=== PATIENT | male | born 1980 | race Caucasian/White ===

== ENCOUNTER → 2020-06-02 | Outpatient (REF) | payer MEDICARE | LOC: M SFHCADAM 12:23 | PROVIDERS: ATTEND Physician Assistant | DX: J02.9 Acute pharyngitis, unspecified (principal); Z20.822 Contact with and (suspected) exposure to COVID-19 | CPT/HCPCS: G0463; U0003 ==

== ENCOUNTER → 2020-06-20 | Outpatient (CLI) | payer MEDICARE ==
--- NOTE | 2020-06-20 11:28 | REP ---
INDICATION: COUGH COMPARISON: None. TECHNIQUE: PA and lateral. FINDINGS: The mediastinum and cardiac silhouette are normal. The lung metzger demonstrate chronic appearing changes without discrete focal consolidation, effusion, or pneumothorax. Skeletal structures demonstrate age-related changes. IMPRESSION: No obvious focal consolidation or effusion. <Electronically signed by Sascha Cisneros > 06/20/20 1121
== END ==
LOC: M ADAMS 11:02
PROVIDERS: ATTEND Physician Assistant
DX: R05 Cough (principal)
CPT/HCPCS: 71046; G0463

== ENCOUNTER → 2020-09-09 | Outpatient (CLI) | payer MEDICARE ==
[~2020-09-09] MED LIST: ATOR1TAB21 PO; FLUTISP NARES; METF10004 PO; OMEP-218 PO
== END ==
LOC: M LABSMTC 11:17
PROVIDERS: ATTEND Anesthesiology
DX: Z01.818 Encounter for other preprocedural examination (principal); Z11.52 Encounter for screening for COVID-19

== ENCOUNTER 2020-09-14 07:38 | Day surgery (SDC) | payer MEDICARE ==
[~2020-09-14] VITALS: Ht 175.3 cm; Wt 99.8 kg
[~2020-09-14 07:38] MED LIST changes: +LR 1,000 ML IV ONE; +dexameTHASONE 4 MG/ML 1ML VIAL (J1100 PER 1MG) IV ONE
[2020-09-14] MEDS ORDERED: fentaNYL 250 MCG/5 ML INJECTION (J3010) As Ordered ONE (08:01)
[2020-09-14] MEDS ORDERED: ONDANSETRON 4MG/2ML VIAL As Ordered ONE (08:02)
[2020-09-14] MEDS ORDERED: ROCURONIUM BROMIDE 50 MG/5 ML VIAL As Ordered ONE (08:02)
[2020-09-14] MEDS ORDERED: MIDAZOLAM INJ 2MG/2ML VIAL (J2250 PER 1MG) As Ordered ONE (08:02)
[2020-09-14] MEDS ORDERED: LIDOCAINE 2% 100MG/5ML SDV (FOR ANES.) As Ordered ONE (08:02)
[2020-09-14] MEDS ORDERED: propofoL 200 MG/20 ML VIAL As Ordered ONE (08:02)
[2020-09-14] MEDS ORDERED: dexameTHASONE 4 MG/ML 1ML VIAL (J1100 PER 1MG) As Ordered ONE (08:02)
[2020-09-14] MEDS ORDERED: SILVER NITRATE APPLICATOR As Ordered ONE (08:12)
[2020-09-14] MEDS ORDERED: THROMBIN SOLN 5,000 UNITS VIAL As Ordered ONE (08:12)
[2020-09-14] MEDS ORDERED: OXYMETAZOLINE 0.05% NASAL SPRAY (AFRIN) As Ordered ONE (08:13)
[2020-09-14] MEDS ORDERED: METHYLENE BLUE 0.5% (5MG/ML) 10 ML AMP (PROVAYBLUE) As Ordered ONE (08:13)
[2020-09-14] MEDS ORDERED: EPINEPHrine 1MG/ML INJ 30ML MD-VIAL As Ordered ONE (08:13)
[2020-09-14] MEDS ORDERED: LIDOCAINE W/EPINEPHRINE 1% 20ML VIAL As Ordered ONE (08:13)
[2020-09-14] MEDS ORDERED: SEVOFLURANE INHAL SOLN 250 ML BTL As Ordered ONE (08:14)
[2020-09-14] MEDS ORDERED: ACETAMINOPHEN 1000MG 100ML IV BTL (OFIRMEV) (J0131 PER 10MG) As Ordered ONE (09:34)
[2020-09-14] MEDS ORDERED: SUGAMMADEX SODIUM 500 MG/5 ML VIAL (BRIDION) As Ordered ONE (09:40)
[2020-09-14] MEDS ORDERED: ESMOLOL INJ 100MG/10ML VIAL As Ordered ONE (09:54)
[2020-09-14] MEDS ORDERED: ONDANSETRON 4MG/2ML VIAL IV PRN (10:40)
[2020-09-14] MEDS ORDERED: LR 1,000 ML IV SCH ×2 (10:40→11:00)
[2020-09-14] MEDS ORDERED: fentaNYL 100 MCG/2 ML INJECTION (J3010) IV PRN (10:40)
[2020-09-14] MEDS ORDERED: METOCLOPRAMIDE INJ 10MG/2ML VIAL (J2765 PER 1) IV PRN (10:40)
[2020-09-14] MEDS: PERCOCET 5MG/325MG TAB PO PRN ×2 (10:51→11:23)
[2020-09-14 12:20] VITALS: BP 149/83
== END 2020-09-14 12:35 | disposition home or self-care (01) ==
LOC: M SDC 07:38
PROVIDERS: ATTEND Otolaryngology
DX: J34.9 Unspecified disorder of nose and nasal sinuses (principal); J38.3 Other diseases of vocal cords; E78.5 Hyperlipidemia, unspecified; E11.9 Type 2 diabetes mellitus without complications; F17.218 Nicotine dependence, cigarettes, with other nicotine-induced disorders; Z79.84 Long term (current) use of oral hypoglycemic drugs; Z79.899 Other long term (current) drug therapy; F32.9 Major depressive disorder, single episode, unspecified; G43.909 Migraine, unspecified, not intractable, without status migrainosus; K21.9 Gastro-esophageal reflux disease without esophagitis
CPT/HCPCS: 31237; 31536; 88305; J0131; J1100; J2250; J2405; J3010; Q9968

== ENCOUNTER → 2020-09-24 | Outpatient (CLI) | payer MEDICARE ==
[~2020-09-24] MED LIST changes: -LR 1,000 ML IV ONE; -dexameTHASONE 4 MG/ML 1ML VIAL (J1100 PER 1MG) IV ONE
== END ==
LOC: M LABSMTC 09:15
PROVIDERS: ATTEND Anesthesiology
DX: Z01.818 Encounter for other preprocedural examination (principal); Z11.52 Encounter for screening for COVID-19

== ENCOUNTER → 2020-09-29 | Day surgery (SDC) | payer MEDICARE ==
[~2020-09-29] VITALS: Ht 175.3 cm; Wt 99.8 kg
[~2020-09-29] MED LIST changes: +LIDOCAINE 2% 100MG/5ML SDV (FOR ANES.) As Ordered ONE; +NS 1,000 ML IV ONE; +fentaNYL 100 MCG/2 ML INJECTION (J3010) As Ordered ONE; +propofoL 500 MG/50 ML VIAL As Ordered ONE
--- NOTE | 2020-09-29 11:12 | ROOR ---
Patient Name: Carlos Manuel Reddy Procedure Date: 09/29/2020 10:42 AM Date of : 1980 Age: 40 Room: [facility] Gender: Male Note Status: Finalized Procedure: Upper GI endoscopy Indications: Heartburn, Regurgitation Providers: Raj Bianchi MD Referring MD: BRAYDEN Gilbert Requesting Provider: Medicines: Monitored Anesthesia Care Complications: No immediate complications. Procedure: Pre-Anesthesia Assessment: - The heart rate, respiratory rate, oxygen saturations, blood pressure, adequacy of pulmonary ventilation, and response to care were monitored throughout the procedure. The Endoscope was introduced through the mouth, and advanced to the second part of duodenum. The upper GI endoscopy was accomplished without difficulty. The patient tolerated the procedure well. Findings: There were esophageal mucosal changes suspicious for short-segment Roman's esophagus present in the lower third of the esophagus. The maximum longitudinal extent of these mucosal changes was 1 cm in length. Mucosa was biopsied with a cold forceps for histology from 39 to 40 cm from the incisors. One specimen bottle was sent to pathology. The exam of the esophagus was otherwise normal. The entire examined stomach was normal. (compliant/large volume) The examined duodenum was normal. Impression: - Esophageal mucosal changes suspicious for short-segment (1 cm, no nodularity) Roman's esophagus. Biopsied. - Esphagus is otherwise normal. - Normal stomach. - Normal examined duodenum. Recommendation: - Use Prilosec (omeprazole) 40 mg PO BID indefinitely. - You may use Gaviscon as needed for breakthrough symptoms. (script sent) - Eat smaller, more frequent meals throughout the day. - Low fat diet. - Liquid/soft foods are tolerated better than solid foods. - Low fiber/well cooked vegetables are tolerated better than high fiber/fibrous foods/raw vegetables. - Avoid medications that inhibit gastric/intestinal motility such as narcotic medications. - Repeat upper endoscopy in 3 years for surveillance. Procedure Code(s): --- Professional --- 58278, Esophagogastroduodenoscopy, flexible, transoral; with biopsy, single or multiple Diagnosis Code(s): --- Professional --- R11.10, Vomiting, unspecified R12, Heartburn K22.8, Other specified diseases of esophagus CPT copyright 2019 [employer]. All rights reserved. The codes documented in this report are preliminary and upon promotional marketing agent review may be revised to meet current compliance requirements. Raj Bianchi MD Raj Bianchi MD 09/29/2020 11:12:11 AM Electronically signed by Raj Bianchi MD Number of Addenda: 0 Note Initiated On: 09/29/2020 10:42 AM Estimated Blood Loss: Estimated blood loss: none.
[2020-09-29 11:25] VITALS: BP 142/88
== END | disposition home or self-care (01) ==
LOC: M OPP 08:51
PROVIDERS: ATTEND Internal Medicine Gastroenterology
DX: R12 Heartburn (principal); R11.10 Vomiting, unspecified; K22.70 Barrett's esophagus without dysplasia; K22.8 Other specified diseases of esophagus; E78.5 Hyperlipidemia, unspecified; E11.9 Type 2 diabetes mellitus without complications; M19.90 Unspecified osteoarthritis, unspecified site; F32.9 Major depressive disorder, single episode, unspecified; G43.909 Migraine, unspecified, not intractable, without status migrainosus; F17.210 Nicotine dependence, cigarettes, uncomplicated; Z79.84 Long term (current) use of oral hypoglycemic drugs; Z79.899 Other long term (current) drug therapy; Z83.3 Family history of diabetes mellitus; Z82.49 Family history of ischemic heart disease and other diseases of the circulatory system
CPT/HCPCS: 43239; 88305; J3010

== ENCOUNTER → 2020-11-09 | Outpatient (CLI) | payer MEDICARE ==
[~2020-11-09] MED LIST changes: -LIDOCAINE 2% 100MG/5ML SDV (FOR ANES.) As Ordered ONE; -NS 1,000 ML IV ONE; -fentaNYL 100 MCG/2 ML INJECTION (J3010) As Ordered ONE; -propofoL 500 MG/50 ML VIAL As Ordered ONE
[2020-11-09 11:03] LABS: ALBUMIN 3.7 GM/DL (3.2-5.2); ALT/SGPT 21 U/L (12-78); BILIRUBIN,TOTAL 0.4 MG/DL (0.2-1.0); BLOOD UREA NITROGEN 15 MG/DL (7-18); CARBON DIOXIDE LEVEL 27 MEQ/L (21-32); CHLORIDE LEVEL 106 MEQ/L (98-107); CHOLESTEROL LEVEL 229 MG/DL (<200); CHOLESTEROL RISK RATIO 8.807 (<5); CREATININE FOR GFR 0.73 MG/DL (0.70-1.30); GLOMERULAR FILTRATION RATE > 60.0 (>60); GLUCOSE, FASTING 189 MG/DL (70-100); HDL CHOLESTEROL 26 MG/DL (>40); NON-HDL-C 203 MG/DL; POTASSIUM SERUM 4.7 MEQ/L (3.5-5.1); SODIUM LEVEL 140 MEQ/L (136-145); TOTAL PROTEIN 6.8 GM/DL (6.4-8.2); TRIGLYCERIDES LEVEL 747 MG/DL (<150)
[2020-11-09 12:02] LABS: HEMOGLOBIN A1c 7.3 %
== END ==
LOC: M PLALAB 07:56
PROVIDERS: ATTEND Physician Assistant
DX: E78.2 Mixed hyperlipidemia (principal)

== ENCOUNTER → 2020-11-13 | Outpatient (CLI) | payer MEDICARE ==
[~2020-11-13] MED LIST changes: +ISOVUE-370 76% 100ML VIAL As Ordered ONE
--- NOTE | 2020-11-13 10:26 | REPVR ---
PROCEDURE INFORMATION: Exam: CT Neck With Contrast Exam date and time: 11/13/2020 9:53 AM Age: 40 years old Clinical indication: Condition or disease; Other: Diseases of vocal cords; Prior surgery; Surgery date: 6+ months TECHNIQUE: Imaging protocol: Computed tomography images of the neck with contrast. Radiation optimization: All CT scans at this facility use at least one of these dose optimization techniques: automated exposure control; mA and/or kV adjustment per patient size (includes targeted exams where dose is matched to clinical indication); or iterative reconstruction. Contrast material: ISOVUE 370; Contrast volume: 75 ml; Contrast route: INTRAVENOUS (IV); COMPARISON: DX CHEST 2 VIEW 06/20/2020 10:49 AM FINDINGS: Brain: The visualized base of the brain is within normal limits for age. Paranasal sinuses: No air-fluid levels. Nasopharynx: Unremarkable. Oropharynx: Mildly asymmetric soft tissue thickening calcification at the parapharyngeal level on the left comparison to the right can be followed with direct visualization. Hypopharynx: Unremarkable. Larynx: Symmetric appearance to the vocal cords. Retropharyngeal space: Unremarkable. Submandibular/Parotid glands: Normal. Glands are normal in size. Thyroid: Normal. No enlarged or calcified nodules. Lymph nodes: No lymphadenopathy. Trachea: Visualized trachea is unremarkable. Lungs: The included lungs are clear. Bones/joints: Postoperative changes of anterior fusion at C6-C7 with an interbody spacer. The patient is edentulous with lucent lesions in both sides of the anterior maxilla possibly dental in origin but I have no priors. Vasculature: No venous thrombus. No significant atherosclerotic disease of the carotids. Soft tissues: No prevertebral soft tissue swelling. No dominant neck mass. IMPRESSION: 1. No dominant mass or confluent lymphadenopathy. 2. Mildly asymmetric soft tissue at the parapharyngeal level on the left as above. 3. Symmetric appearance to the vocal cords. 4. Lucent lesions along both sides of the anterior maxilla for which appropriate follow-up is recommended. Electronically signed by: Javi Radford On 11/13/2020 10:26:33 AM
== END ==
LOC: M RAD 09:16
PROVIDERS: ATTEND Otolaryngology
DX: J38.3 Other diseases of vocal cords (principal)
CPT/HCPCS: 70491; Q9967

== ENCOUNTER → 2020-12-08 | Outpatient (REF) | payer MEDICARE ==
[~2020-12-08] MED LIST changes: +ATOR40TA75 PO; +ICOS1CAP PO; -ISOVUE-370 76% 100ML VIAL As Ordered ONE; +JARD1TAB3 PO; +OMEP-221 PO
[2020-12-08 14:45] LABS: C REACTIVE PROTEIN QUANTITATIV 0.69 MG/DL (0.00-0.30); FREE T4 1.09 NG/DL (0.76-1.46); RHEUMATOID FACTOR QUANT < 10.0 IU/ML (<15.0); THYROID STIMULATING HORMONE 0.919 uIU/ML (0.358-3.740)
[2020-12-12 23:07] LABS: ANA (HEP2) Negative (.); HLA-B27 Negative (.)
== END ==
LOC: M SFHCADAM 08:46
PROVIDERS: ATTEND Physician Assistant
DX: E78.1 Pure hyperglyceridemia (principal); M19.90 Unspecified osteoarthritis, unspecified site; M54.5 Low back pain

== ENCOUNTER → 2020-12-08 | Outpatient (CLI) | payer MEDICARE | LOC: M ADAMS 08:50 | PROVIDERS: ATTEND Physician Assistant | DX: M54.5 Low back pain (principal); E78.1 Pure hyperglyceridemia; M19.90 Unspecified osteoarthritis, unspecified site | CPT/HCPCS: 72110; 81374; 84439; 84443; 86038; 86140; 86431; G0463 ==

== ENCOUNTER → 2021-02-05 | Outpatient (CLI) | payer MEDICARE ==
--- NOTE | 2021-02-05 20:48 | ECGEPIP ---
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
== END ==
LOC: M EKG 10:25
PROVIDERS: ATTEND Otolaryngology
DX: Z01.818 Encounter for other preprocedural examination (principal); E11.59 Type 2 diabetes mellitus with other circulatory complications

== ENCOUNTER → 2021-02-10 | Outpatient (CLI) | payer MEDICARE | LOC: M LABSMTC 09:31 | PROVIDERS: ATTEND Anesthesiology | DX: Z01.818 Encounter for other preprocedural examination (principal); Z11.52 Encounter for screening for COVID-19 ==

== ENCOUNTER 2021-02-15 08:39 | Day surgery (SDC) | payer MEDICARE ==
[~2021-02-15] VITALS: Ht 175.3 cm; Wt 94.7 kg
[~2021-02-15 08:39] MED LIST changes: +LR 1,000 ML IV ONE
--- OUTSIDE RECORDS SUMMARY | 2021-02-15 08:45 | CCD | Continuity of Care Document ---
Author Author Carlos Manuel BULL MD Organization Unknown Address [address] [facility] [address] [place] [address] Phone [phone] Care Team Providers Care Superintendent Operations Division Name Role Phone Chloe Dunlap P.A.-C. AUTM [phone] Problems Description No Active Problems Social History Type Date Description Comments Sex Unknown Smokeless Tobacco Quit 2017 ETOH Use 2 A Day Tobacco Use Start: Unknown Smokes 1 Pack A Day Recreational Drug Use Denies Drug Use Tobacco Use Start: Unknown Report Cessation Counseling Was Provided Allergies, Adverse Reactions, Alerts Active Allergies Criticality Reaction | Severity Comments Date NKDA Unable to assess criticality 07/18/2020 Environmental Unable to assess criticality 07/18/2020 Seasonal Unable to assess criticality 07/18/2020 Medications Active Medications SIG Qnty Indications Ordering Provide r Date Mometasone Furoate 50mcg/Act Suspe nsion 2 sprays per nostril daily 51gm J31.0 Edgard Bull MD 021 Gaviscon 80-14.2mg Chewtabs chew and swallow 2 tablets by mouth 4 times per day after meals and at bedtime as needed for breakthrough acid indigestion 180units Raj Bianchi MD 09/29/[address] take 1 capsule by mouth twice daily. 60caps K21.9 Raj Bianchi MD Atorvastatin Calcium 20mg Tablets Take One Tablet By Mouth Every Day Unknown Metformin HCL 850mg Tablets Take One Tablet By Mouth Twice A Day Unknown Saline Nasal [place] 0.65% Solution 2 sprays to each nostril 2-3 times a day and as needed Un known Fish Oil 500mg Capsules 2 by mouth every day Unknown Januvia 25mg Tablets 1 by mouth every day Unknown Immunizations Description No Information Available Vital Signs Date Vital Result Comment 12/12/2020 8:54am Height 69 inches 5'9" Weight 212.00 lb BMI (Body Mass Index) 31.3 kg/m2 [place] Body Weight 160 lb Weight 96.163 kg BSA (Body Surface Area) 2.12 m2 11/29/2020 10:18am Height 69 inches 5'9" Weight 228.00 lb BMI (Body Mass Index) 33.7 kg/m2 [place] Body Weight 160 lb Weight 103.421 kg BSA (Body Surface Area) 2.18 m2 Results Test Acquired Date Facility Test Result H/L Range Note Laboratory test finding 09/29/2020 [facility] [address] [place] [address] [id number] [phone] Pathology Request For Service (SEE NOTE) 1 Laboratory test finding 09/14/2020 [facility] [address] [place], [place] [id number] [phone] Pathology Request For Service (SEE NOTE) 2 Laboratory test finding 09/14/2020 [facility] [address] [place], [place] [id number] [phone] Bedside Glucose 153 mg/dL High 70-105 1 FINAL DIAGNOSIS Esophagus, GE junction, biopsy: Roman's mucosa present. Mild chronic inflammation. No evidence of premalignant dysplasia. Squamous mucosa with reactive and reparative changes. 10/02/2020 - 1031 CLINICAL DIAGNOSIS Heartburn, epigastric pain 09/29/20201506 GROSS DIAGNOSIS Received in formalin labeled "biopsy GE junction R/O Roman's, variable Z line" and consists of fragments of tissue 0.3 x 0.2 x 0.1 cm. All in one. -OA 09/29/2020 - 1506 Signed SANFORD VICK MD 10/02/20201031 2 FINAL DIAGNOSIS A - Nasopharynx, left, biopsy: Polypoid fragment of ciliated respiratory/sinonasal mucosa with chronic inflammation and focal squamous metaplasia. No evidence for malignancy. B - Vocal cord, right, biopsy: Fragments of polypoid hyperkeratotic squamous mucosa. No evidence for malignancy. C - Vocal cord, left, biopsy: Fragments of hyperkeratotic squamous mucosa with mild focal atypia. No evidence for malignancy. 09/15/2020 - 1218 CLINICAL DIAGNOSIS Nasopharynx mass, bilateral vocal cord leukoplakia 09/14/2020 - 2 GROSS DIAGNOSIS A - Received in formalin labeled "left nasopharynx biopsy" and consists of multiple fragments of montgomery tissue measuring 0.7 x 0.5 x 0.2 cm. in aggregate. All in one. B - Received in formalin labeled "right vocal cord biopsy" and consists of two fragments of montgomery tissue 0.7 x 0.5 x 0.3 cm. in aggregate. All in one. C - Received in formalin labeled "left vocal cord biopsy" and consists of two fragments of montgomery-white tissue measuring 0.6 x 0.4 x 0.2 cm. in aggregate. All in one. -SVY 09/14/2020 - 1431 Signed ENEDELIA HENRY MD 09/15/2020 1326 Procedures Date Code Description Status 12/12/2020 43582 Office/Outpatient Established Mo d MDM 30-39 Min Completed 12/12/2020 96980 Laryngoscopy Flexible Fiberoptic Diagnostic Completed 10/04/2020 65878 Office/Outpatient Established Mo d MDM 30-39 Min Completed 10/04/2020 01393 Laryngoscopy Flexible Fiberoptic Diagnostic Completed 09/29/2020 60842 Endoscopy Upper GI Biopsy Comple mary lou 09/21/2020 64789 Office/Outpatient Established Lo w MDM 20-29 Min Completed 09/14/2020 09219 Laryngoscopy Direct Biopsy W/Ope rating Microscope Completed 09/14/2020 06865 Endoscopy Nasal/Sinus Surgical W /BX/Polypectomy/Debridement Completed 07/28/2020 67474 Office/Outpatient New Low MDM 30 -44 Minutes Completed 07/18/2020 96201 Office/Outpatient New Moderate M DM 45-59 Minutes Completed 07/18/2020 33607 Endoscopy Nasal Diagnostic Compl eted Medical Devices Description No Information Available Encounters Type Date Location Provider Dx Diagnosis Office Visit 12/12/2020 9:15a [facility] Edgard Bull MD J38.3 Other diseases of vocal cords J31.0 Chronic rhinitis R09.82 Postnasal drip J32.0 Chronic maxillary sinusitis F17.210 Nicotine dependence, cigaret adam, uncomplicated Office Visit 10/04/2020 1:00p [facility] Edgard Bull MD J38.3 Other diseases of vocal cords J31.0 Chronic rhinitis R09.82 Postnasal drip R49.0 Dysphonia Office Visit 09/21/2020 9:15a [facility] Ayan Mora II, PA-C J38.3 Other diseases of vocal cords J31.1 Chronic nasopharyngitis Office Visit 07/28/2020 1:00p [facility] ELISE Martinez K21.9 Gastro-esophageal reflux dis ease without esophagitis R10.13 Epigastric pain R19.8 Oth symptoms and signs invol ving the dgstv sys and abdomen Office Visit 07/18/2020 9:30a [facility] Edgrad Bull MD J31.0 Chronic rhinitis J34.3 Hypertrophy of nasal turbina adam J32.0 Chronic maxillary sinusitis J31.1 Chronic nasopharyngitis R49.0 Dysphonia J38.3 Other diseases of vocal cord s R09.82 Postnasal drip Assessments Date Code Description Provider 12/12/2020 J38.3 Other diseases of vocal cords To maranda Bull MD 12/12/2020 J31.0 Chronic rhinitis Edgard Bull MD 12/12/2020 R09.82 Postnasal drip Edgard Bull MD 12/12/2020 J32.0 Chronic maxillary sinusitis Edgard Bull MD 12/12/2020 F17.210 Nicotine dependence, cigarettes, uncomplicated Edgard Bull MD 10/04/2020 J38.3 Other diseases of vocal cords To maranda Bull MD 10/04/2020 J31.0 Chronic rhinitis Edgard Bull MD 10/04/2020 R09.82 Postnasal drip Edgard Bull MD 10/04/2020 R49.0 Dysphonia Edgard Bull MD 09/29/2020 R11.10 Vomiting, unspecified Raj coleman MD 09/29/2020 R12 Heartburn Raj Bianchi MD 09/29/2020 K22.8 Other specified diseases of esop hagus Raj Bianchi MD 09/21/2020 J38.3 Other diseases of vocal cords Th blaire Morgan FAN PA-C 09/21/2020 J31.1 Chronic nasopharyngitis Ayan Coello margo FAN PA-C 09/14/2020 J38.3 Other diseases of vocal cords To maradna Bull MD 09/14/2020 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 T stephanie Bull MD 07/28/2020 K21.9 Gastro-esophageal reflux disease without esophagitis Temi Jose Guadalupe KEY Tadeo 07/28/2020 R10.13 Epigastric pain Temi A KEY Garcia 07/28/2020 R19.8 Other specified symp toms and signs involving the digestive system and abdomen KEY Martinez 07/18/2020 J31.0 Chronic rhinitis Edgard Bull MD 07/18/2020 J34.3 Hypertrophy of nasal turbinates Edgard Bull MD 07/18/2020 J32.0 Chronic maxillary sinusitis Edgard Bull MD 07/18/2020 J31.1 Chronic nasopharyngitis Edgard painting MD 07/18/2020 R49.0 Dysphonia Edgard Bull MD 07/18/2020 J38.3 Other diseases of vocal cords To maranda Bull MD 07/18/2020 R09.82 Postnasal drip Edgard Bull MD Plan of Treatment Future Appointment(s):* 01/04/2021 11:00 am - Edgard Bull MD at [facility] 12/12/2020 - Edgard Bull MD* J38.3 Other diseases of vocal cords * J31.0 Chronic rhinitis * R09.82 Postnasal drip * J32.0 Chronic maxillary sinusitis* New Xrays:* CT Maxillofacial With Brain Lab W/O Contrast, Ordered: 12/12/20 * F17.210 Nicotine dependence, cigarettes, uncomplicated Functional Status Description No Information Available Mental Status Description No Information Available Referrals Refer to Dr Reason for Referral Status Appt Date Raj Bianchi M.D. [id number] Closed 09/29/2020 [facility], Gastroenterology [address] [facility], [address] [place] [id number] [phone] Edgard Bull MD COMMISSIONER OF CONCILIATION CHRONIC SINUSITIS LARYNG ITIS REF R [facility] [facility] Closed 07/18/[address] [place] [address] [address] [place] [address] [phone] Raj Bianchi M.D. GERD AND DYSPHAGIA Closed 07/22/19 [facility], Gastroenterology [address] [place] [address] [address] [place] [address] [phone]
--- OUTSIDE RECORDS SUMMARY | 2021-02-15 08:45 | CCD | Continuity of Care Document ---
Author Author Carlos Manuel BULL MD Organization Unknown Address [address] [facility] [address] [place] [address] Phone [phone] Care Team Providers Care Roll Wrapper Name Role Phone Chloe Dunlap P.A.-C. AUTM Problems Description No Active Problems Social History [...] SIG Qnty Indications Ordering Provide r Date Fluticasone Propionate 50mcg/Act Suspension 2 sprays to each nostril daily 32gm Edgard estrada MD 12/13/2020 Mometasone Furoate 50mcg/Act Suspe nsion 2 sprays per nostril daily 51gm J31.0 Edgard Bull MD 021 Gaviscon 80-14.2mg Chewtabs chew and swallow 2 tablets by mouth 4 times per day after meals and at bedtime as needed for breakthrough acid indigestion 180units Raj Bianchi MD 09/29/[address] Take One Capsule By Mouth Twice A Day 60caps K21.9 Raj Bianchi MD Atorvastatin Calcium 20mg Tablets Take One Tablet By Mouth Every Day Unknown 00/00/ 0000 Metformin HCL 850mg Tablets Take One Tablet By Mouth Twice A Day Unknown 000 Saline Nasal [place] 0.65% Solution 2 sprays to each nostril 2-3 times a day and as needed Un known Fish Oil 500mg Capsules 2 by mouth every day Unknown Januvia 25mg Tablets 1 by mouth every day Unknown Immunizations Description No Information Available Vital Signs Date Vital Result Comment 12/12/2020 8:54am Height 69 inches 5'9" Weight 212.00 lb BMI (Body Mass Index) 31.3 kg/m2 [place] Body Weight 160 lb Weight 96.163 kg BSA (Body Surface Area) 2.12 m2 11/29/2020 10:18am Height 69 inches 5'9" Weight 228.00 lb BMI (Body Mass Index) 33.7 kg/m2 [place] Body Weight 160 lb Weight 103.421 kg BSA (Body Surface Area) 2.18 m2 Results Test Acquired Date Facility Test Result H/L Range Note Laboratory test finding 09/29/2020 [facility] [address] [place] [address] [id number] [phone] Pathology Request For Service (SEE NOTE) 1 Laboratory test finding 09/14/2020 [facility] [address] [place], [place] [address] [phone] Pathology Request For Service (SEE NOTE) 2 Laboratory test finding 09/14/2020 [facility] [address] [place], [place] [id number] [phone] Bedside Glucose 153 mg/dL High 70-105 1 FINAL DIAGNOSIS Esophagus, GE junction, biopsy: Roman's mucosa present. Mild chronic inflammation. No evidence of premalignant dysplasia. Squamous mucosa with reactive and reparative changes. 10/02/2020 - 103 CLINICAL DIAGNOSIS Heartburn, epigastric pain 09/29/2020 - 150 GROSS DIAGNOSIS Received in formalin labeled "biopsy GE junction R/O Roman's, variable Z line" and consists of fragments of tissue 0.3 x 0.2 x 0.1 cm. All in one. -OA 09/29/2020 - 150 Signed SANFORD VICK MD 10/02/2020 1032 2 FINAL DIAGNOSIS A - Nasopharynx, left, biopsy: Polypoid fragment of ciliated respiratory/sinonasal mucosa with chronic inflammation and focal squamous metaplasia. No evidence for malignancy. B - Vocal cord, right, biopsy: Fragments of polypoid hyperkeratotic squamous mucosa. No evidence for malignancy. C - Vocal cord, left, biopsy: Fragments of hyperkeratotic squamous mucosa with mild focal atypia. No evidence for malignancy. 09/15/2020 - 1219 CLINICAL DIAGNOSIS Nasopharynx mass, bilateral vocal cord leukoplakia 09/14/2020 - 1432 GROSS DIAGNOSIS A - Received in formalin [...] 1326 Procedures Date Code Description Status 12/12/2020 85454 Office/Outpatient Established Mo d MDM 30-39 Min Completed 12/12/2020 31145 Laryngoscopy Flexible Fiberoptic Diagnostic Completed 10/04/2020 21847 Office/Outpatient Established Mo d MDM 30-39 Min Completed 10/04/2020 84102 Laryngoscopy Flexible Fiberoptic Diagnostic Completed 09/29/2020 52714 Endoscopy Upper GI Biopsy Comple mary lou 09/21/2020 12126 Office/Outpatient Established Lo w MDM 20-29 Min Completed 09/14/2020 06956 Laryngoscopy Direct Biopsy W/Ope rating Microscope Completed 09/14/2020 47013 Endoscopy Nasal/Sinus Surgical W /BX/Polypectomy/Debridement Completed 07/28/2020 19464 Office/Outpatient New Low MDM 30 -44 Minutes Completed 07/18/2020 74682 Office/Outpatient New Moderate M DM 45-59 Minutes Completed 07/18/2020 23964 Endoscopy Nasal Diagnostic Compl eted Medical Devices Description No Information Available Encounters Type Date Location Provider Dx Diagnosis Office Visit 12/12/2020 9:15a [facility] Edgard Bull MD J38.3 Other diseases of vocal cords J31.0 Chronic rhinitis R09.82 Postnasal drip J32.0 Chronic maxillary sinusitis F17.210 Nicotine dependence, cigaret adam, uncomplicated Office Visit 10/04/2020 1:00p [facility] Edgard Bull MD J38.3 Other diseases of vocal cords J31.0 Chronic rhinitis R09.82 Postnasal drip R49.0 Dysphonia Office Visit 09/21/2020 9:15a [facility] Ayan Mora II, PA-C J38.3 Other diseases of vocal cords J31.1 Chronic nasopharyngitis Office Visit 07/28/2020 1:00p [facility] ELISE Martinez K21.9 Gastro-esophageal reflux dis ease without esophagitis R10.13 Epigastric pain R19.8 Oth symptoms and signs invol ving the dgstv sys and abdomen Office Visit 07/18/2020 9:30a [facility] Edgard Bull MD J31.0 Chronic rhinitis J34.3 Hypertrophy [...] Other diseases of vocal cords Th blaire Jonesc II, [facility] 09/21/2020 J31.1 Chronic nasopharyngitis Ayan navafatou II, [facility] 09/14/2020 J38.3 Other diseases of vocal cords To maranda Bull MD 09/14/2020 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 T stephanie Bull MD 07/28/2020 K21.9 Gastro-esophageal reflux disease without esophagitis Temi A Charlebois, [facility] 07/28/2020 R10.13 Epigastric pain Temi Jose Guadalupe Mcgillle bosidra, [facility] 07/28/2020 R19.8 Other specified symp toms and signs involving the digestive system and abdomen Temilam Tadeo, [facility] 07/18/2020 J31.0 Chronic rhinitis Edgard Bull MD 07/18/2020 J34.3 Hypertrophy of nasal turbinates Edgard Bull MD 07/18/2020 J32.0 Chronic maxillary sinusitis Edgard Bull MD 07/18/2020 J31.1 Chronic nasopharyngitis Edgard painting MD 07/18/2020 R49.0 Dysphonia Edgard Bull MD 07/18/2020 J38.3 Other diseases of vocal cords To maranda Bull MD 07/18/2020 R09.82 Postnasal drip Edgard Bull MD Plan of Treatment Future Appointment(s):* 02/15/2021 12:30 pm - Edgard Bull MD at [facility] 12/12/2020 - Edgard Bull MD* [...] Referral Status Appt Date Raj Bianchi M.D. [id number] Closed 09/29/2020 [facility], Gastroenterology [address] [facility], [address] [place] [address] [phone]
--- OUTSIDE RECORDS SUMMARY | 2021-02-15 08:45 | CCD | Continuity of Care Document ---
Author Author Carlos Manuel BULL MD Organization Unknown Address [address] [facility] [address] [place] [address] Phone [phone] Care Team Providers Care Solar Panel Technician Name Role Phone Chloe Dunlap P.A.-C. AUTM [phone] Problems Description No Active Problems Social History Type Date Description Comments Sex Unknown Smokeless Tobacco Quit 2017 ETOH Use 2 A Day Tobacco Use Start: Unknown Smokes 1 Pack A Day Recreational Drug Use Denies Drug Use Tobacco Use Start: Unknown Report Cessation Counseling Was Provided Allergies, Adverse Reactions, Alerts Active Allergies Reaction Severity Comments Date NKDA 07/18/2020 Environmental 07/18/2020 Seasonal 07/18/2020 Medications Active Medications SIG Qnty Indications [...] Mouth Twice A Day Unknown Saline Nasal [place] 0.65% Solution 2 sprays to each nostril 2-3 times a day and as needed Un known Immunizations Description No Information Available Vital Signs Date Vital Result Comment 10/04/2020 1:00pm Height 69 inches 5'9" Weight 220.00 lb BMI (Body Mass Index) 32.5 kg/m2 Hawi Body Weight 160 lb Weight 99.792 kg BSA (Body Surface Area) 2.15 m2 09/21/2020 9:06am Height 69 inches 5'9" Weight 220.00 lb BMI (Body Mass Index) 32.5 kg/m2 Hawi Body Weight 160 lb Weight 99.792 kg BSA (Body Surface Area) 2.15 m2 Results Test Acquired Date Facility Test Result H/L Range Note Laboratory test finding 09/29/2020 [facility] Main Lab [address] [place], [place] [id number] [phone] Pathology Request For Service (SEE NOTE) 1 Laboratory test finding 09/14/2020 [facility] [address] [place] [address] [phone] Pathology Request For Service (SEE NOTE) 2 Laboratory test finding 09/14/2020 [facility] [address] [place] [address] [phone] Bedside Glucose 153 mg/dL High 70-105 1 FINAL DIAGNOSIS Esophagus, GE junction, biopsy: Roman's mucosa present. Mild chronic inflammation. No evidence of premalignant dysplasia. Squamous mucosa with reactive and reparative changes. 10/02/2020 - 1031 CLINICAL DIAGNOSIS Heartburn, epigastric pain 09/29/2020 - 1506 GROSS DIAGNOSIS Received in formalin labeled "biopsy [...] mass, bilateral vocal cord leukoplakia 09/14/2020 - 1431 GROSS DIAGNOSIS A - Received in formalin [...] 09/15/2020 1326 Procedures Date Code Description Status 10/04/2020 29332 Office/Outpatient Established Mo d MDM 30-39 Min Completed 10/04/2020 94044 Laryngoscopy Flexible Fiberoptic Diagnostic Completed 09/29/2020 33710 Endoscopy Upper GI Biopsy Comple mary lou 09/21/2020 25747 Office/Outpatient Established Lo w MDM 20-29 Min Completed 09/14/2020 92376 Laryngoscopy Direct Biopsy W/Ope rating Microscope Completed 09/14/2020 99271 Endoscopy Nasal/Sinus Surgical W /BX/Polypectomy/Debridement Completed 07/28/2020 40848 Office/Outpatient New Low MDM 30 -44 Minutes Completed 07/18/2020 04606 Office/Outpatient New Moderate M DM 45-59 Minutes Completed 07/18/2020 10463 Endoscopy Nasal Diagnostic Compl eted Medical Devices Description No Information Available Encounters Type Date Location Provider Dx Diagnosis Office Visit 10/04/2020 1:00p [facility] Edgard Bull MD J38.3 Other diseases of vocal cords J31.0 Chronic rhinitis R09.82 Postnasal drip R49.0 Dysphonia Office Visit 09/21/2020 9:15a [facility] Ayan Mora II, PA-C J38.3 Other diseases of vocal cords J31.1 Chronic nasopharyngitis Office Visit 07/28/2020 1:00p [facility] ELISE Martinez K21.9 Gastro-esophageal reflux dis ease without esophagitis R10.13 Epigastric pain R19.8 Oth symptoms and signs invol ving the stv sys and abdomen Office Visit 07/18/2020 9:30a [facility] Edgard Bull MD J31.0 Chronic rhinitis J34.3 Hypertrophy of nasal turbina adam J32.0 Chronic maxillary sinusitis J31.1 Chronic nasopharyngitis R49.0 Dysphonia J38.3 Other diseases of vocal cord s R09.82 Postnasal drip Assessments Date Code Description Provider 10/04/2020 J38.3 Other diseases of vocal cords To maranda Bull MD 10/04/2020 J31.0 Chronic rhinitis Edgard Bull MD 10/04/2020 R09.82 Postnasal drip Edgard Bull MD 10/04/2020 R49.0 Dysphonia Edgard Bull MD 09/29/2020 R11.10 Vomiting, unspecified Raj coleman MD 09/29/2020 R12 Heartburn Raj Bianchi MD 09/29/2020 K22.8 Other specified diseases of esop hagus Raj Bianchi MD 09/21/2020 J38.3 Other diseases of vocal cords Th JAMISON Eden [facility] 09/21/2020 J31.1 Chronic nasopharyngitis JAMISON Eid IIC 09/14/2020 J38.3 Other diseases of vocal cords To maranda Bull MD 09/14/2020 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 T stephanie Bull MD 07/28/2020 K21.9 Gastro-esophageal reflux disease without esophagitis Temilam Tadeo RPA-C 07/28/2020 R10.13 Epigastric pain Temilam knight RPA-C 07/28/2020 R19.8 Other specified symp toms and signs involving the digestive system and abdomen KEY MartinezC 07/18/2020 J31.0 Chronic rhinitis Edgard Bull MD 07/18/2020 J34.3 Hypertrophy of nasal turbinates Edgard Bull MD 07/18/2020 J32.0 Chronic maxillary sinusitis Edgard Bull MD 07/18/2020 J31.1 Chronic nasopharyngitis Edgard painting MD 07/18/2020 R49.0 Dysphonia Edgard Bull MD 07/18/2020 J38.3 Other diseases of vocal cords To maranda Bull MD 07/18/2020 R09.82 Postnasal drip Edgard Bull MD Plan of Treatment Future Appointment(s):* 11/29/2020 10:30 am - Edgard Bull MD at [facility] * 01/04/2021 11:00 am - Edgard Bull MD at [facility] 10/04/2020 - Edgard Bull MD* J38.3 Other diseases of vocal cords * J31.0 Chronic rhinitis* New Medication:* Mometasone Furoate 50 mcg/Act - 2 sprays per nostril daily * R09.82 Postnasal drip * R49.0 Dysphonia Functional Status Description No Information Available Mental Status Description No Information Available Referrals Refer to Dr Reason for Referral Status Appt Date Raj Bianchi M.D. [id number] Scheduled 09/29/2020 [facility] Gastroenterology [address] [place] [address] [phone] Edgard Bull MD SALES RECEPTIONIST CHRONIC SINUSITIS LARYNG ITIS REF [facility] Closed 07/18/[address] [place] [address] [phone] Raj Bianchi M.D. GERD AND DYSPHAGIA Closed 07/22/19 [facility], Gastroenterology [address] [place] [address] [phone]
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
--- OUTSIDE RECORDS SUMMARY | 2021-02-15 08:45 | CCD ---
Author Author [facility] Organization [facility] Address Unknown Phone Unavailable Care Team Providers Care Stenciler Name Role Phone Chloe Dunlap Unavailable PROBLEMS Type Condition ICD9-CM Code RUC02-JH Code Onset Dates Condition S tatus W/U Status Risk SNOMED Code Notes Problem Pure hypercholesterolemia E78.00 Active confirmed 403750362 Problem Lumbago with sciatica, right side M54.41 Active confirmed 82335710 Problem Other chronic pain G89.29 Active confirmed 8 1838155 Problem Hypertriglyceridemia E78.1 Active confirmed 432918283 Problem Non-seasonal allergic rhinitis, unspecified trigger J30.89 Active confirmed 06626893 Problem Arthritis M19.90 Active confirmed 5518694 Problem Gastroesophageal reflux disease without esophagitis K21.9 Active confirmed 460623768 Problem Mixed hyperlipidemia E78.2 Active confirmed 058931891 Problem Type 2 diabetes mellitus wit hout complication, without long-term current use of insulin E11.9 Active confirmed 167987899 Problem Cigarette nicotine dependence without complication F17.210 Active confirmed 79422106 Problem 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 K22.70 Ac tive confirmed 328542946 ALLERGIES No Known Allergies ENCOUNTERS from 1978 to 2020-12-15 Encounter Location Date Provider Diagnosis [address] [place] [address] Nov, Chloe Dunlap Hypertriglyceridemia E78.1 ; Type 2 diab etes mellitus without complication, without long-term current use of insulin E11.9 ; Arthritis M19.90 and Lumbar pain M54.5 IMMUNIZATIONS Vaccine Route Administration Date Status Influenza 18 yrs & older Flublok IM Intramuscular May 12, 2020 Administered SOCIAL HISTORY Tobacco Use: Social History Observation Description Date Details (start date - stop date) Current Smoker Sex Assigned At : Social History Observation Description Sex Assigned At Unknown Audit Question Answer Notes Total Score: 4 Interpretation: Alcohol Education Language: Question Answer Notes Languages spoken: Mongolian Domestic Violence: Question Answer Notes Status: Drug [...] education provid ed 11/10/2020 REASON FOR REFERRAL from 1978 to 2020-12-15 Reason chronic lumbar pain and left hip pain - needs strengthening and stretching excercises to perform routinely for core strengthening and control of pain issues. Diagnosis 1 Lumbar pain (M54.5) Referral Organization [facility] [place] Referring Provider First Name Chloe Referring Provider Last Name Germán Referring Provider Specialty Family Medicine Referred Provider Specialty Physical Therapist Referral Priority Routine VITAL SIGNS Weight 211 lbs Nov, Height 5'9" in Nov, BMI 31.16 kg/m2 Nov, Heart Rate 104 /min Nov, Respiratory Rate 18 /min Nov, Temperature 96.8 degrees Fahrenheit Nov, Oximetry 98 Nov, Blood pressure systolic 122 mm Hg Nov, Blood pressure diastolic 74 mm Hg Nov, MEDICATIONS Medication SIG (Take, Route, Frequency, Duration) [...] Once a day for 30 day(s) 2 Nov, 2020 Active Lovaza 1 GM 2 [...] a day Active PROCEDURES No Information RESULTS Component Value Reference Range C REACTIVE PROTEIN QUANTITATIV (At [facility] L ab) Reviewed date:12/08/2020 16:55:04 Interpretation: Performing Lab:[facility] [address] [place] [address] , ,[place] [address] C REACTIVE PROTEIN QUANTITATIV 0.69 0.00-0.30 FREE T4 & TSH PANEL Reviewed date:12/08/2020 16:55:06 Interpretation: Performing Lab:[facility] [address] [place] [address] , ,[place] [address] THYROID STIMULATING HORMONE 0.919 0.358-3.740 FREE T4 1.09 0.76-1.46 RHEUMATOID FACTOR QUANT Reviewed date:12/08/2020 16:55:08 Interpretation: Performing Lab:[facility] [address] [facility] [address] , ,[place] [address] RHEUMATOID FACTOR QUANT < 10.0 <15.0 [facility] SPINE LS COMPLETE Reviewed date:12/11/2020 07:14:40 Interpretation: Performing Lab:[facility],[address]], ,[place] [address] HLA-B27 Reviewed date:12/14/2020 14:08:20 Interpretation: Performing Lab:[facility], [facility] [address] [facility] [id number] , ,[place] [address] HLA-B27 Negative . ADOLPH TITER & PATTERN Reviewed date:12/14/2020 14:08:25 Interpretation: Performing Lab:[facility], [facility] [address] [facility] [address] , ,[place] [address] ADOLPH (HEP2) Negative . REASON FOR VISIT 4 week MEDICAL (GENERAL) HISTORY Type Description Date Medical [...] Treatment Notes Treatm ent Clinical Notes Nov, Hypertriglyceridemia (ICD-10 - E78.1) Nov, Type 2 diabetes mellitus wit hout complication, without long-term current use of insulin (ICD-10 - E11.9) Nov, Arthritis (ICD-10 - M19.90) c/o pain in left hip, lower backand shoulders for years - worsening Unable to take NSAIDs due to h/o Roman's Nov, Lumbar pain (ICD-10 - M54.5) PLAN OF TREATMENT Medication Medication Name Sig [...] Twice a day for 30 day(s) 2020 Treatment Notes Assessment Notes Clinical Notes Arthritis c/o pain in left hip , lower backand shoulders for years - worseningUnable to take NSAIDs due to h/o Roman's Future Test Test Name Order Date LIPID PANEL (CARDIAC RISK) 20210307 VITB12 & FOL 20210307 HEMOGLOBIN A1c 20210307 Comprehensive Metabolic Profile (CMP) 20210307 Referrals Referral Date Details chronic lumbar pain and left hip pain - needs strengthening and stretching excercises to perform routinely for core strengthening and control of pain issues. Next Appt Details labs and x-ray today, f/u 3 months, labs prior Reason: Provider Name:Chloe Dunlap, 2021-02 07:15:00 AM, [address], , [place], [address], Insurance Providers Payer Name Payer Address Payer Phone Insured Name Patient Relati onship to Insured Coverage Start Date Coverage End Date [facility] [employer] [facility] [address] [address] [facility] [address] [phone] [place] self
--- OUTSIDE RECORDS SUMMARY | 2021-02-15 08:45 | CCD | Continuity of Care Document ---
Author Author Carlos Manuel BULL MD Organization Unknown Address [address] [facility] [address] [place] [address] Phone [phone] Care Team Providers Care Mortar Man Name Role Phone Chloe Dunlap P.A.-C. AUTM [...] Mouth Twice A Day Unknown Saline Nasal [place] 0.65% Solution 2 sprays to each nostril 2-3 times a day and as needed Un known Immunizations Description No Information Available Vital Signs Date Vital Result Comment 11/29/2020 10:18am Height 69 inches 5'9" Weight 228.00 lb BMI (Body Mass Index) 33.7 kg/m2 Francis Body Weight 160 lb Weight 103.421 kg BSA (Body Surface Area) 2.18 m2 10/04/2020 1:00pm Height 69 inches 5'9" Weight 220.00 lb BMI (Body Mass Index) 32.5 kg/m2 Francis Body Weight 160 lb Weight 99.792 kg BSA (Body Surface Area) 2.15 m2 Results Test Acquired Date Facility Test Result H/L Range Note Laboratory test finding 09/29/2020 [facility] Main Lab [address] [place], [place] [id number] [phone] Pathology Request For Service (SEE NOTE) 1 Laboratory test finding 09/14/2020 [facility] [address] [place] [address] [phone] Pathology Request For Service (SEE NOTE) 2 Laboratory test finding 09/14/2020 [facility] [address] [place] [address] [phone] Bedside Glucose 153 mg/dL High 70-105 1 [...] 1326 Procedures Date Code Description Status 10/04/2020 00877 Office/Outpatient Established Mo d MDM 30-39 Min Completed 10/04/2020 48142 Laryngoscopy Flexible Fiberoptic Diagnostic Completed 09/29/2020 79526 Endoscopy Upper GI Biopsy Comple mary lou 09/21/2020 11715 Office/Outpatient Established Lo w MDM 20-29 Min Completed 09/14/2020 06293 Laryngoscopy Direct Biopsy W/Ope rating Microscope Completed 09/14/2020 36559 Endoscopy Nasal/Sinus Surgical W /BX/Polypectomy/Debridement Completed 07/28/2020 78625 Office/Outpatient New Low MDM 30 -44 Minutes Completed 07/18/2020 78763 Office/Outpatient New Moderate M DM 45-59 Minutes Completed 07/18/2020 66202 Endoscopy Nasal Diagnostic Compl eted Medical Devices Description No Information Available Encounters Type Date Location Provider Dx Diagnosis Office Visit 10/04/2020 1:00p [facility] Edgard Bull MD J38.3 Other diseases of vocal cords J31.0 Chronic rhinitis R09.82 Postnasal drip R49.0 Dysphonia Office Visit 09/21/2020 9:15a [facility] Ayan Mora II, PA-C J38.3 Other diseases of vocal cords J31.1 Chronic nasopharyngitis Office Visit 07/28/2020 1:00p [facility] ELISE Martinez K21.9 Gastro-esophageal reflux dis ease without esophagitis R10.13 Epigastric pain R19.8 Oth symptoms and signs invol ving the stv sys and abdomen Office Visit 07/18/2020 9:30a [facility] Edgard Bull MD J31.0 Chronic [...] Temilam Tadeo RPA-C 07/28/2020 R10.13 Epigastric pain TemiKEY KrishnaC 07/28/2020 R19.8 Other specified symp toms and [...] 11:00 am - Edgard Bull MD at [facility] 10/04/2020 - Edgard Bull MD* J38.3 Other diseases of vocal cords * J31.0 Chronic rhinitis* New Medication:* Mometasone Furoate 50 mcg/Act - 2 sprays per nostril daily * R09.82 Postnasal drip * R49.0 Dysphonia Functional Status Description No Information Available Mental Status Description No Information Available Referrals Refer to Dr Reason for Referral Status Appt Date Raj Bianchi M.D. [id number] [id number] Closed 09/29/2020 [facility], Gastroenterology [address] [place] [address] [phone] Edgard Bull MD REHABILITATION PHYSICIAN CHRONIC SINUSITIS LARYNG ITIS REF R [facility] Closed 07/18/[address] [place] [address] [phone] Raj Bianchi M.D. GERD AND DYSPHAGIA Closed 07/22/19 [facility] Gastroenterology [address] [place] [address] [phone]
--- OUTSIDE RECORDS SUMMARY | 2021-02-15 08:46 | CCD ---
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 [address] Name Role Phone Jose Guadalupe Tadeo RPA C Unavailable Unavailable CharleboisJose Guadalupe Temi RPA C Unavailable Unavailable CharleboisJose Guadalupe Temi RPA C Unavailable Unavailable Charlebois, A Temi RPA C Unavailable Unavailable Charlebois, A Temi RPA C Unavailable Unavailable Charlebois, A Temi RPA C Unavailable Unavailable Charlebois, A Temi RPA C Unavailable Unavailable Charlebois, A Temi RPA C Unavailable Unavailable Charlebois, A Temi RPA C Unavailable Unavailable Charlebois, A Temi RPA C Unavailable Unavailable Charlebois, A Temi RPA C Unavailable Unavailable Charlebois, A Temi RPA C Unavailable Unavailable Charlebois, A Temi RPA C Unavailable Unavailable Charlebois, A Temi RPA C Unavailable Unavailable Charlebois, A Temi RPA C Unavailable Unavailable Charlebois, A Temi RPA C Unavailable Unavailable Charlebois, A Temi RPA C Unavailable Unavailable Charlebois, A Temi RPA C Unavailable Unavailable Charlebois, A Temi RPA C Unavailable Unavailable Charlebois, A Temi RPA C Unavailable Unavailable Charlebois, A Temi RPA C Unavailable Unavailable Charlebois, A Temi RPA C Unavailable Unavailable Charlebois, A Temi RPA C Unavailable Unavailable Charlebois, A Temi RPA C Unavailable Unavailable Charlebois, A Temi RPA C Unavailable Unavailable Charlebois, A Temi RPA C Unavailable Unavailable Charlebois, A Temi RPA C Unavailable Unavailable Charlebois, A Temi RPA C Unavailable Unavailable Charlebois, A Temi RPA C Unavailable Unavailable Charlebois, A Temi RPA C Unavailable Unavailable Charlebois, A Temi RPA C Unavailable Unavailable Charlebois, A Temi RPA C Unavailable Unavailable Charlebois, A Temi RPA C Unavailable Unavailable Ronda BULL MD Unavailable Unavailable Ronda BULL MD Unavailable Unavailable Ronda BULL MD Unavailable Unavailable Ronda BULL MD Unavailable Unavailable Ronda BULL MD Unavailable Unavailable Ronda BULL MD Unavailable Unavailable Ronda BLUL MD Unavailable Unavailable Ronda BULL MD Unavailable Unavailable Ronda BULL MD Unavailable Unavailable Ronda BULL MD Unavailable Unavailable Ronda BULL MD Unavailable Unavailable Ronda BULL MD Unavailable Unavailable Ronda BULL MD Unavailable Unavailable Ronda BULL MD Unavailable Unavailable Ronda BULL MD Unavailable Unavailable Ronda BULL MD Unavailable Unavailable CINDY, C CEDRIC MD Unavailable Unavailable CINDY, C CEDRIC MD Unavailable Unavailable CINDY, C CEDRIC MD Unavailable Unavailable CINDY, C CEDRIC MD Unavailable Unavailable CINDY, C CEDRIC MD Unavailable Unavailable CINDY, C CEDRIC MD Unavailable Unavailable CINDY, C CEDRIC MD Unavailable Unavailable CINDY, C CEDRIC MD Unavailable Unavailable CINDY, C CEDRIC MD Unavailable Unavailable CINDY, C CEDRIC MD Unavailable Unavailable CINDY, C CEDRIC MD Unavailable Unavailable CINDY, C CEDRIC MD Unavailable Unavailable CINDY, C CEDRIC MD Unavailable Unavailable CINDY, C CEDRIC MD Unavailable Unavailable CINDY, C CEDRIC MD Unavailable Unavailable CINDY, C CEDRIC MD Unavailable Unavailable CINDY, C CEDRIC MD Unavailable Unavailable CINDY, C CEDRIC MD Unavailable Unavailable Morgan II, Ayan PA Unavailable Unavailable Morgan II, Ayan PA Unavailable Unavailable Morgan II, Ayan PA Unavailable Unavailable Morgan II, Ayan PA Unavailable Unavailable Morgan II, Ayan PA Unavailable Unavailable Morgan II, Ayan PA Unavailable Unavailable Morgan II, Ayan PA Unavailable Unavailable Morgan II, Ayan PA Unavailable Unavailable Morgan II, Ayan PA Unavailable Unavailable Morgan II, Ayan PA Unavailable Unavailable Morgan II, Ayan PA Unavailable Unavailable Morgan II, Ayan PA Unavailable Unavailable Morgan II, Ayan PA Unavailable Unavailable Morgan II, Ayan PA Unavailable Unavailable Morgan II, Ayan PA Unavailable Unavailable Morgan II, Ayan PA Unavailable Unavailable Morgan II, Ayan PA Unavailable Unavailable Morgan II, Ayan PA Unavailable Unavailable Morgan II, Ayan PA Unavailable Unavailable Re-disclosure Warning The records that you are about to access may contain information from federally-assisted alcohol or drug abuse programs. If such information is present, then the following federally mandated warning applies: This information has been disclosed to you from records protected by federal confidentiality rules (42 CFR part 2). The federal rules prohibit you from making any further disclosure of this information unless further disclosure is expressly permitted by the written consent of the person to whom it pertains or as otherwise permitted by 42 CFR part 2. A general authorization for the release of medical or other information is NOT sufficient for this purpose. The Federal rules restrict any use of the information to criminally investigate or prosecute any alcohol or drug abuse patient.The records that you are about to access may contain highly sensitive health information, the redisclosure of which is protected by Article 27-F of the [facility] Public Health law. If you continue you may have access to information: Regarding HIV / AIDS; Provided by facilities licensed or operated by the [facility] Office of Mental Health; or Provided by the [facility] Office for People With Developmental Disabilities. If such information is present, then the following [facility] mandated warning applies: This information has been disclosed to you from confidential records which are protected by state law. State law prohibits you from making any further disclosure of this information without the specific written consent of the person to whom it pertains, or as otherwise permitted by law. Any unauthorized further disclosure in violation of state law may result in a fine or chcf sentence or both. A general authorization for the release of medical or other information is NOT sufficient authorization for further disc losure. Family History Family Member Name Family Member Gender Family Member Status Date o f Status Description Data Source(s) Unknown Condition [facility] Condition [facility] Unknown Unknown Problem [facility] ([facility] [place] Encounters Encounter Providers Location Date Indications Data Source(s ) Outpatient Attender: CEDRIC Bull/Carlene/[place]/Gianna l 12/12/2020 09:15:00 AM EDT MED[facility] ([facility]) Outpatient [address] [facility] [place] [address] 12/08/2020 12:00:00 AM EDT eCW1 ([facility]) Unknown [address] [facility] [place] [facility] [address] 12/08/2020 12:00:00 AM EDT eCW1 [facility]) Outpatient [address] [facility] [place] [address] 11/10/2020 12:00:00 AM EDT eCW1 ([facility]) Outpatient Attender: CEDRIC Bull/Carlene/[place]/Gianna l 10/04/2020 01:00:00 PM EDT MEDENT ([facility]) Outpatient Attender: Ayan Bull/Carlene/[place] 09/21/2020 09:15:00 AM EDT [facility] ([facility] [place] [address] [facility] [place] [address] 08/03/2020 12:00:00 AM EDT eCW1 ([facility]) Outpatient Attender: Temi Bull/Carlene/A lizette/Reindl 07/28/2020 01:00:00 PM EDT MEDENT ([facility] ) Outpatient Attender: CEDRIC Bull/Carlene/[place] 07/18/2020 09:30:00 AM EDT [facility] ([facility] [place] [address] [facility] [place] [address] 07/06/2020 12:00:00 AM EDT eCW1 ([facility]) [place] [address] [facility] [place] [address] 06/20/2020 12:00:00 AM EST eCW1 ([facility]) [place] [address] [facility] [place] [address] 06/15/2020 12:00:00 AM EST eCW1 ([facility]) [place] [address] [facility] [place] [address] 06/15/2020 12:00:00 AM EST eCW1 ([facility]) [place] [address] [facility] [place] [address] 06/02/2020 12:00:00 AM EST eCW1 ([facility]) [place] [address] [facility] [place] [address] 05/17/2020 12:00:00 AM EST eCW1 ([facility]) [place] [address] [facility] [place] [address] 05/12/2020 12:00:00 AM EST eCW1 ([facility]) Immunizations Vaccine Date Status Description Data Source(s) influenza, recombinant, quadrIvalent,injectable, prese rvative free 05/12/2020 03:18:00 PM EST completed eCW1 ([facility]) influenza, recombinant, quadrIvalent,injectable, prese rvative free 05/12/2020 03:18:00 PM EST completed eCW1 ([facility]) influenza, recombinant, quadrIvalent,injectable, prese rvative free 05/12/2020 03:18:00 PM EST completed eCW1 ([facility]) influenza, recombinant, quadrIvalent,injectable, prese rvative free 05/12/2020 03:18:00 PM EST completed eCW1 ([facility]) influenza, recombinant, quadrIvalent,injectable, prese rvative free 05/12/2020 03:18:00 PM EST completed eCW1 ([facility]) influenza, recombinant, quadrIvalent,injectable, prese rvative free 05/12/2020 03:18:00 PM EST completed eCW1 ([facility]) influenza, recombinant, quadrIvalent,injectable, prese rvative free 05/12/2020 03:18:00 PM EST completed eCW1 ([facility]) influenza, recombinant, quadrIvalent,injectable, prese rvative free 05/12/2020 03:18:00 PM EST completed eCW1 ([facility]) influenza, recombinant, quadrIvalent,injectable, prese rvative free 05/12/2020 03:18:00 PM EST completed eCW1 ([facility]) influenza, recombinant, quadrIvalent,injectable, prese rvative free 05/12/2020 03:18:00 PM EST completed eCW1 ([facility]) influenza, recombinant, quadrIvalent,injectable, prese rvative free 05/12/2020 03:18:00 PM EST completed eCW1 ([facility]) Medications Medication Brand Name Start Date Product Form Dose Route Admi nistrative Instructions Pharmacy Instructions Status Indications Reaction Description Data Source(s) 40 mg 01/09/2021 12:00:00 AM EDT capsule,delayed release (DR/EC) 60 TAKE ONE CAPSULE BY MOUTH TWICE A DAY TAKE ONE CAPSULE BY MOUTH TWICE A DAY SOLD: 02/06/2021 [facility] 40 mg 01/09/2021 12:00:00 AM EDT capsule,delayed release (DR/EC) 60 TAKE ONE CAPSULE BY MOUTH TWICE A DAY TAKE ONE CAPSULE BY MOUTH TWICE A DAY SOLD: 01/13/2021 [facility] Fluticasone propionate 0.05 MG/ACTUAT Metered Dose [place] 50 mcg/actuation FLUTICASONE PROPIONATE 12/13/2020 12:00:00 AM EDT spray,suspension 32 SPRAY TWO SPRAYS IN EACH NOSTRIL EVERY DAY SPRAY TWO SPRAYS IN EACH NOSTRIL EVERY DAY SOLD: 12/16/2020 [facility] Fluticasone Propionate Fluticasone Propionate 12/13/2020 12:00:00 AM E DT active MEDENT ([facility], ) atorvastatin 40 MG Oral Tablet ATORVASTATIN CALCIUM 12/08/2020 1 2:00:00 AM EDT tablet 30 TAKE ONE TABLET BY MOUTH EVERY D AY TAKE ONE TABLET BY MOUTH EVERY DAY SOLD: 02/06/2021 [facility] 1,000 mg 12/08/2020 12:00:00 AM EDT tablet 60 TAKE ONE TABLET BY MOUTH TWICE A DAY TAKE ONE TABLET BY MOUTH TWICE A DAY SOLD: 01/06/2021 [facility] 1 gram 12/08/2020 12:00:00 AM EDT capsule 120 TAKE TWO CAPSULES BY MOUTH TWICE A DAY WITH MEALS TAKE TWO CAPSULES BY MOUTH TWICE A DAY WITH MEALS SOLD : 02/06/2021 [facility] atorvastatin 40 MG Oral Tablet ATORVASTATIN CALCIUM 12/08/2020 1 2:00:00 AM EDT tablet 30 TAKE ONE TABLET BY MOUTH EVERY D AY TAKE ONE TABLET BY MOUTH EVERY DAY SOLD: 12/08/2020 [facility] Walnut Shade-3 Acid Ethyl Esters (LONG-TERM) 1000 MG Oral Capsule [ Lovaza] Lovaza 1 GM Lovaza 1 GM 12/08/2020 12:00:00 AM EDT 2.0 {capsules} active Lovaza 1 GM eCW1 ([facility]) 1,000 mg 12/08/2020 12:00:00 AM EDT tablet 60 TAKE ONE TABLET BY MOUTH TWICE A DAY TAKE ONE TABLET BY MOUTH TWICE A DAY SOLD: 02/06/2021 [facility] 25 mg 12/08/2020 12:00:00 AM EDT tablet 30 TAKE ONE TABLET BY MOUTH EVERY DAY TAKE ONE TABLET BY MOUTH EVERY DAY SOLD: 01/06/2021 [facility] 1 gram 12/08/2020 12:00:00 AM EDT capsule 120 TAKE TWO CAPSULES BY MOUTH TWICE A DAY WITH MEALS TAKE TWO CAPSULES BY MOUTH TWICE A DAY WITH MEALS SOLD : 12/09/2020 [facility] empagliflozin 25 MG Oral Tablet [Jardiance] Jardiance 25 MG Jardiance 25 MG 12/08/2020 12:00:00 AM EDT 1.0 {tablet} active Jardiance 25 MG eCW1 ([facility]) 1 gram 12/08/2020 12:00:00 AM EDT capsule 120 TAKE TWO CAPSULES BY MOUTH TWICE A DAY WITH MEALS TAKE TWO CAPSULES BY MOUTH TWICE A DAY WITH MEALS SOLD : 01/06/2021 [facility] 25 mg 12/08/2020 12:00:00 AM EDT tablet 30 TAKE ONE TABLET BY MOUTH EVERY DAY TAKE ONE TABLET BY MOUTH EVERY DAY SOLD: 12/08/2020 [facility] 1,000 mg 12/08/2020 12:00:00 AM EDT tablet 60 TAKE ONE TABLET BY MOUTH TWICE A DAY TAKE ONE TABLET BY MOUTH TWICE A DAY SOLD: 12/08/2020 [facility] icosapent ethyl 1000 MG Oral Capsule [Vascepa] Vascepa 1 GM Vascepa 1 GM 12/08/2020 12:00:00 AM EDT 2.0 {capsules_with_meals} active Vascepa 1 GM eCW1 ([facility]) icosapent ethyl 1000 MG Oral Capsule [Vascepa] Vascepa 1 GM Vascepa 1 GM 12/08/2020 12:00:00 AM EDT 2.0 {capsules_with_meals} active Vascepa 1 GM eCW1 ([facility]) 25 mg 12/08/2020 12:00:00 AM EDT tablet 30 TAKE ONE TABLET BY MOUTH EVERY DAY TAKE ONE TABLET BY MOUTH EVERY DAY SOLD: 02/06/2021 [facility] atorvastatin 40 MG Oral Tablet ATORVASTATIN CALCIUM 12/08/2020 1 2:00:00 AM EDT tablet 30 TAKE ONE TABLET BY MOUTH EVERY D AY TAKE ONE TABLET BY MOUTH EVERY DAY SOLD: 01/06/2021 [facility] Wal[place]ade-3 Acid Ethyl Esters (LONG-TERM) 1000 MG Oral Capsule [ Lovaza] Lovaza 1 GM Lovaza 1 GM 12/08/2020 12:00:00 AM EDT 2.0 {capsules} active Lovaza 1 GM eCW1 ([facility]) empagliflozin 25 MG Oral Tablet [Jardiance] Jardiance 25 MG Jardiance 25 MG 12/08/2020 12:00:00 AM EDT 1.0 {tablet} active Jardiance 25 MG eCW1 ([facility]) Chantix Continuing Month Manav 1 MG Chantix Continuing Month P ak 1 MG 11/10/2020 12:00:00 AM EDT suspended Chant ix Continuing Month Manav 1 MG eCW1 ([facility]) atorvastatin 40 MG Oral Tablet Atorvastatin Calcium 40 MG Atorvastatin Calcium 40 MG 11/10/2020 12:00:00 AM EDT 1.0 {tablet} activ e Atorvastatin Calcium 40 MG eCW1 ([facility]) empagliflozin 10 MG Oral Tablet [Jardiance] Jardiance 10 MG Jardiance 10 MG 11/10/2020 12:00:00 AM EDT 1.0 {tablet} active Jardiance 10 MG eCW1 ([facility]) atorvastatin 40 MG Oral Tablet Atorvastatin Calcium 40 MG Atorvastatin Calcium 40 MG 11/10/2020 12:00:00 AM EDT 1.0 {tablet} activ e Atorvastatin Calcium 40 MG eCW1 ([facility]) Fish Oil 1000 MG Fish Oil 1000 MG 11/10/2020 12:00:00 AM EDT 1.0 {capsule} suspended Fish Oil 1000 MG eCW1 ([facility]) atorvastatin 40 MG Oral Tablet Atorvastatin Calcium 40 MG Atorvastatin Calcium 40 MG 11/10/2020 12:00:00 AM EDT 1.0 {tablet} activ e Atorvastatin Calcium 40 MG eCW1 ([facility]) Chantix Starting Month Manav 0.5 MG X 11 & 1 MG X 42 Muriel ntix Starting Month Manav 0.5 MG X 11 & 1 MG X 42 11/10/2020 12:00:00 AM EDT suspended Chantix Starting Month Manav 0.5 MG X 11 & 1 MG X 42 eCW1 ([facility]) Chantix Continuing Month Manav 1 MG Chantix Continuing Month P ak 1 MG 11/10/2020 12:00:00 AM EDT suspended Chant ix Continuing Month Manav 1 MG eCW1 ([facility]) Fish Oil 1000 MG Fish Oil 1000 MG 11/10/2020 12:00:00 AM EDT 1.0 {capsule} suspended Fish Oil 1000 MG eCW1 ([facility]) Fish Oil 1000 MG Fish Oil 1000 MG 11/10/2020 12:00:00 AM EDT 1.0 {capsule} active Fish Oil 1000 MG eCW1 ([facility]) Chantix Starting Month Manav 0.5 MG X 11 & 1 MG X 42 Muriel ntix Starting Month Manav 0.5 MG X 11 & 1 MG X 42 11/10/2020 12:00:00 AM EDT suspended Chantix Starting Month Manav 0.5 MG X 11 & 1 MG X 42 eCW1 ([facility]) Chantix Starting Month Manav 0.5 MG X 11 & 1 MG X 42 Muriel ntix Starting Month Manav 0.5 MG X 11 & 1 MG X 42 11/10/2020 12:00:00 AM EDT active Chantix Starting Month Manav 0.5 MG X 11 & 1 MG X 42 eCW1 ([facility]) 10 mg 11/10/2020 12:00:00 AM EDT tablet 30 TAKE ONE TABLET BY MOUTH EVERY DAY TAKE ONE TABLET BY MOUTH EVERY DAY SOLD: 11/15/2020 [facility] Chantix Continuing Month Manav 1 MG Chantix Continuing Month P ak 1 MG 11/10/2020 12:00:00 AM EDT active Chantix Continuing Month Manav 1 MG eCW1 ([facility]) Mometasone Furoate Mometasone Furoate 10/04/2020 12:00:00 AM EDT active MEDENT ([facility], ) Aluminum Hydroxide 80 MG / magnesium tri silicate 14.2 MG Chewable Tablet [Gaviscon Chewable] Gaviscon 09/29/2020 12:00:00 AM EDT ORAL active MEDENT ([facility], ) Metformin hydrochloride 1000 MG Oral Tablet metFORMIN HCl 1000 MG metFORMIN HCl 1000 MG 08/03/2020 12:00:00 AM EDT 1.0 {tablet_with_a_meal} active metFORMIN HCl 1000 MG eCW1 ([facility]) Metformin hydrochloride 1000 MG Oral Tablet metFORMIN HCl 1000 MG metFORMIN HCl 1000 MG 08/03/2020 12:00:00 AM EDT 1.0 {tablet_with_a_meal} active metFORMIN HCl 1000 MG eCW1 ([facility]) Metformin hydrochloride 1000 MG Oral Tablet metFORMIN HCl 1000 MG metFORMIN HCl 1000 MG 08/03/2020 12:00:00 AM EDT 1.0 {tablet_with_a_meal} active metFORMIN HCl 1000 MG eCW1 ([facility]) 1,000 mg 08/03/2020 12:00:00 AM EDT tablet 60 TAKE ONE TABLET BY MOUTH TWICE A DAY WITH MEALS TAKE ONE TABLET BY MOUTH TWICE A DAY WITH MEALS SOLD: 08/04/2020 [facility] 1,000 mg 08/03/2020 12:00:00 AM EDT tablet 60 TAKE ONE TABLET BY MOUTH TWICE A DAY WITH MEALS TAKE ONE TABLET BY MOUTH TWICE A DAY WITH MEALS SOLD: 09/04/2020 [facility] Metformin hydrochloride 1000 MG Oral Tablet Metformin HCl 1000 MG Metformin HCl 1000 MG 08/03/2020 12:00:00 AM EDT 1.0 {tablet_with_a_meal} active Metformin HCl 1000 MG eCW1 ([facility]) 40 mg 07/29/2020 12:00:00 AM EDT capsule,delayed release (DR/EC) 60 TAKE ONE CAPSULE BY MOUTH TWICE A DAY TAKE ONE CAPSULE BY MOUTH TWICE A DAY SOLD: 08/04/2020 [facility] 40 mg 07/29/2020 12:00:00 AM EDT capsule,delayed release (DR/EC) 60 TAKE ONE CAPSULE BY MOUTH TWICE A DAY TAKE ONE CAPSULE BY MOUTH TWICE A DAY SOLD: 09/04/2020 [facility] 40 mg 07/29/2020 12:00:00 AM EDT capsule,delayed release (DR/EC) 60 TAKE ONE CAPSULE BY MOUTH TWICE A DAY TAKE ONE CAPSULE BY MOUTH TWICE A DAY SOLD: 12/10/2020 [facility] Omeprazole 40 MG Delayed Release Oral Capsule Omeprazole 07/28/2020 12:00:00 AM EDT active MEDENT ([facility] ) 20 mg 07/12/2020 12:00:00 AM EDT capsule,delayed release (DR/EC) 60 TAKE ONE CAPSULE BY MOUTH 30 MINUTES BEFORE MORNING MEAL TWO TIMES A DAY TAKE ONE CAPSULE BY MOUTH 30 MINUTES BEFORE MORNING MEAL TWO TIMES A DAY SOLD: 07/14/2020 [facility] Levofloxacin 500 MG Oral Tablet Levaquin 500 MG Levaquin 500 MG 06/20/2020 12:00:00 AM EST 1.0 {tablet} suspended Levaquin 500 MG eCW1 ([facility]) Levofloxacin 500 MG Oral Tablet Levaquin 500 MG Levaquin 500 MG 06/20/2020 12:00:00 AM EST 1.0 {tablet} suspended Levaquin 500 MG eCW1 ([facility]) 500 mg 06/20/2020 12:00:00 AM EST tablet 7 TAKE ONE TABLET BY MOUTH EVERY DAY TAKE ONE TABLET BY MOUTH EVERY DAY SOLD: 06/21/2020 [facility] Levofloxacin 500 MG Oral Tablet Levaquin 500 MG Levaquin 500 MG 06/20/2020 12:00:00 AM EST 1.0 {tablet} active Le vaquin 500 MG eCW1 ([facility]) Levofloxacin 500 MG Oral Tablet Levaquin 500 MG Levaquin 500 MG 06/20/2020 12:00:00 AM EST 1.0 {tablet} active Le vaquin 500 MG eCW1 ([facility]) BLOOD-GLUCOSE METER 06/16/2020 12:00:00 AM EST misc 1 USE DIRECTED USE DIRECTED SOLD: 06/17/2020 [employer] [facility] 33 gauge 06/16/2020 12:00:00 AM EST misc 100 USE TO TEST BLOOD GLUCOSE ONCE DAILY USE TO TEST BLOOD GLUCOSE ONCE DAILY SOLD: 06/17/2020 [facility] BLOOD SUGAR DIAGNOSTIC 06/16/2020 12:00:00 AM EST strip 50 USE TO TEST BLOOD GLUCOSE ONCE DAILY NEEDED USE TO TEST BLOOD GLUCOSE ONCE DAILY NEEDED SOLD: 06/17/2020 [facility] Glucose Meter Test - Glucose Meter Test - 06/15/2020 12:00:00 AM EST active Glucose Meter Test - eCW1 ([facility] 24 HR Nicotine 0.875 MG/HR Transdermal P atch [Nicoderm C-Q] Nicoderm CQ 21 MG/24HR Nicoderm CQ 21 MG/24HR 06/15/2020 12:00:00 AM EST 1.0 {patch_to_skin} active Nicoderm CQ 21 MG/24 HR eCW1 ([facility]) Glucose Meter Test - Glucose Meter Test - 06/15/2020 12:00:00 AM EST active Glucose Meter Test - eCW1 ([facility]) Lancets - Lancets - 06/15/2020 12:00:00 AM EST act stephen Lancets - eCW1 ([facility]) Nicotine 4 MG Oral Lozenge [Nicorette] Nicorette 4 MG Nicore tte 4 MG 06/15/2020 12:00:00 AM EST 1.0 {lozenge_as_needed} suspended Nicorette 4 MG eCW1 ([facility]) Lancets - Lancets - 06/15/2020 12:00:00 AM EST act stephen Lancets - eCW1 ([facility]) Lancets - Lancets - 06/15/2020 12:00:00 AM EST act stephen Lancets - eCW1 ([facility]) Lancets - Lancets - 06/15/2020 12:00:00 AM EST act stephen Lancets - eCW1 ([facility]) Lancets - Lancets - 06/15/2020 12:00:00 AM EST act stephen Lancets - eCW1 ([facility]) 24 HR Nicotine 0.875 MG/HR Transdermal P atch [Nicoderm C-Q] Nicoderm CQ 21 MG/24HR Nicoderm CQ 21 MG/24HR 06/15/2020 12:00:00 AM EST 1.0 {patch_to_skin} suspended Nicoderm CQ 21 MG/24 HR eCW1 ([facility]) Blood Glucose Monitor System w/Device Blood Glucose Monitor System w/Device 06/15/2020 12:00:00 AM EST active Blood Glucose Monitor System w/Device eCW1 ([facility]) Lancets - Lancets - 06/15/2020 12:00:00 AM EST act stephen Lancets - eCW1 ([facility]) Glucose Meter Test - Glucose Meter Test - 06/15/2020 12:00:00 AM EST active Glucose Meter Test - eCW1 ([facility]) Blood Glucose Monitor System w/Device Blood Glucose Monitor System w/Device 06/15/2020 12:00:00 AM EST active Blood Glucose Monitor System w/Device eCW1 ([facility]) Glucose Meter Test - Glucose Meter Test - 06/15/2020 12:00:00 AM EST active Glucose Meter Test - eCW1 ([facility]) Blood Glucose Monitor System w/Device Blood Glucose Monitor System w/Device 06/15/2020 12:00:00 AM EST active Blood Glucose Monitor System w/Device eCW1 ([facility]) 24 HR Nicotine 0.875 MG/HR Transdermal P atch [Nicoderm C-Q] Nicoderm CQ 21 MG/24HR Nicoderm CQ 21 MG/24HR 06/15/2020 12:00:00 AM EST 1.0 {patch_to_skin} suspended Nicoderm CQ 21 MG/24 HR eCW1 ([facility]) Glucose Meter Test - Glucose Meter Test - 06/15/2020 12:00:00 AM EST active Glucose Meter Test - eCW1 ([facility]) Nicotine 4 MG Oral Lozenge [Nicorette] Nicorette 4 MG Nicore tte 4 MG 06/15/2020 12:00:00 AM EST 1.0 {lozenge_as_needed} suspended Nicorette 4 MG eCW1 ([facility]) Blood Glucose Monitor System w/Device Blood Glucose Monitor System w/Device 06/15/2020 12:00:00 AM EST active Blood Glucose Monitor System w/Device eCW1 ([facility]) Glucose Meter Test - Glucose Meter Test - 06/15/2020 12:00:00 AM EST active Glucose Meter Test - eCW1 ([facility]) 24 HR Nicotine 0.875 MG/HR Transdermal P atch [Nicoderm C-Q] Nicoderm CQ 21 MG/24HR Nicoderm CQ 21 MG/24HR 06/15/2020 12:00:00 AM EST 1.0 {patch_to_skin} suspended Nicoderm CQ 21 MG/24 HR eCW1 ([facility]) Glucose Meter Test - Glucose Meter Test - 06/15/2020 12:00:00 AM EST active Glucose Meter Test - eCW1 ([facility]) Blood Glucose Monitor System w/Device Blood Glucose Monitor System w/Device 06/15/2020 12:00:00 AM EST active Blood Glucose Monitor System w/Device eCW1 ([facility]) 24 HR Nicotine 0.875 MG/HR Transdermal P atch [Nicoderm C-Q] Nicoderm CQ 21 MG/24HR Nicoderm CQ 21 MG/24HR 06/15/2020 12:00:00 AM EST 1.0 {patch_to_skin} suspended Nicoderm CQ 21 MG/24 HR eCW1 ([facility]) Blood Glucose Monitor System w/Device Blood Glucose Monitor System w/Device 06/15/2020 12:00:00 AM EST active Blood Glucose Monitor System w/Device eCW1 ([facility]) Nicotine 4 MG Oral Lozenge [Nicorette] Nicorette 4 MG Nicore tte 4 MG 06/15/2020 12:00:00 AM EST 1.0 {lozenge_as_needed} suspended Nicorette 4 MG eCW1 ([facility]) Nicotine 4 MG Oral Lozenge [Nicorette] Nicorette 4 MG Nicore tte 4 MG 06/15/2020 12:00:00 AM EST 1.0 {lozenge_as_needed} suspended Nicorette 4 MG eCW1 ([facility]) Lancets - Lancets - 06/15/2020 12:00:00 AM EST act stephen Lancets - eCW1 ([facility]) Blood Glucose Monitor System w/Device Blood Glucose Monitor System w/Device 06/15/2020 12:00:00 AM EST active Blood Glucose Monitor System w/Device eCW1 ([facility]) Lancets - Lancets - 06/15/2020 12:00:00 AM EST act stephen Lancets - eCW1 ([facility]) Nicotine 4 MG Oral Lozenge [Nicorette] Nicorette 4 MG Nicore tte 4 MG 06/15/2020 12:00:00 AM EST 1.0 {lozenge_as_needed} active Nicorette 4 MG eCW1 ([facility]) Glucose Meter Test - Glucose Meter Test - 06/15/2020 12:00:00 AM EST active Glucose Meter Test - [facility]CW1 [facility] Blood Glucose Monitor System w/Device Blood Glucose Monitor System w/Device 06/15/2020 12:00:00 AM EST active Blood Glucose Monitor System w/Device eCW1 ([facility]) Amoxicillin 875 MG Oral Tablet Amoxicillin 875 MG 06/02/2020 12:00: 00 AM EST 1.0 {tablet} suspended Amoxicillin 875 M G eCW1 ([facility]) Amoxicillin 875 MG Oral Tablet Amoxicillin 875 MG 06/02/2020 12:00: 00 AM EST 1.0 {tablet} suspended Amoxicillin 875 M G eCW1 ([facility]) Amoxicillin 875 MG Oral Tablet Amoxicillin 875 MG 06/02/2020 12:00: 00 AM EST 1.0 {tablet} suspended Amoxicillin 875 M G eCW1 ([facility]) Amoxicillin 875 MG Oral Tablet Amoxicillin 875 MG 06/02/2020 12:00: 00 AM EST 1.0 {tablet} suspended Amoxicillin 875 M G eCW1 ([facility]) 875 mg 06/02/2020 12:00:00 AM EST tablet 20 TAKE ONE TABLET BY MOUTH EVERY 12 HOURS FOR 10 DAYS TAKE ONE TABLET BY MOUTH EVERY 12 HOURS FOR 10 DAYS SO LD: 06/02/2020 [facility] Amoxicillin 875 MG Oral Tablet Amoxicillin 875 MG 06/02/2020 12:00: 00 AM EST 1.0 {tablet} active Amoxicillin 875 MG eCW1 ([facility]) Amoxicillin 875 MG Oral Tablet Amoxicillin 875 MG 06/02/2020 12:00: 00 AM EST 1.0 {tablet} suspended Amoxicillin 875 M G eCW1 ([facility]) celecoxib 200 MG Oral Capsule Celecoxib 200 MG Celecoxib 200 MG 05/17/2020 12:00:00 AM EST 1.0 {capsule_with_food} active Celecoxib 200 MG eCW1 ([facility]) celecoxib 200 MG Oral Capsule Celecoxib 200 MG Celecoxib 200 MG 05/17/2020 12:00:00 AM EST 1.0 {capsule_with_food} suspended Celecoxib 200 MG eCW1 ([facility]) celecoxib 200 MG Oral Capsule Celecoxib 200 MG Celecoxib 200 MG 05/17/2020 12:00:00 AM EST 1.0 {capsule_with_food} suspended Celecoxib 200 MG eCW1 ([facility]) celecoxib 200 MG Oral Capsule Celecoxib 200 MG Celecoxib 200 MG 05/17/2020 12:00:00 AM EST 1.0 {capsule_with_food} suspended Celecoxib 200 MG eCW1 ([facility]) celecoxib 200 MG Oral Capsule Celecoxib 200 MG Celecoxib 200 MG 05/17/2020 12:00:00 AM EST 1.0 {capsule_with_food} active Celecoxib 200 MG eCW1 ([facility]) celecoxib 200 MG Oral Capsule Celecoxib 200 MG Celecoxib 200 MG 05/17/2020 12:00:00 AM EST 1.0 {capsule_with_food} suspended Celecoxib 200 MG eCW1 ([facility]) celecoxib 200 MG Oral Capsule Celecoxib 200 MG Celecoxib 200 MG 05/17/2020 12:00:00 AM EST 1.0 {capsule_with_food} suspended Celecoxib 200 MG eCW1 ([facility]) celecoxib 200 MG Oral Capsule Celecoxib 200 MG Celecoxib 200 MG 05/17/2020 12:00:00 AM EST 1.0 {capsule_with_food} active Celecoxib 200 MG eCW1 ([facility]) 50 mcg/actuation 05/13/2020 12:00:00 AM EST spray,suspension 48 SPRAY ONE SPRAY IN EACH NOSTRIL EVERY DAY SPRAY ONE SPRAY IN EACH NOSTRIL EVERY DAY SOLD: 05/14/2020 [facility] atorvastatin 20 MG Oral Tablet ATORVASTATIN CALCIUM 05/13/2020 1 2:00:00 AM EST tablet 30 TAKE ONE TABLET BY MOUTH EVERY D AY TAKE ONE TABLET BY MOUTH EVERY DAY SOLD: 07/14/2020 [facility] Metformin hydrochloride 850 MG Oral Tablet METFORMIN HCL 05/13/2020 12:00:00 AM EST tablet 60 TAKE ONE TABLET BY MOUTH TWI CE A DAY TAKE ONE TABLET BY MOUTH TWICE A DAY SOLD: 06/29/2020 [facility] atorvastatin 20 MG Oral Tablet ATORVASTATIN CALCIUM 05/13/2020 1 2:00:00 AM EST tablet 30 TAKE ONE TABLET BY MOUTH EVERY D AY TAKE ONE TABLET BY MOUTH EVERY DAY SOLD: 06/13/2020 [facility] atorvastatin 20 MG Oral Tablet ATORVASTATIN CALCIUM 05/13/2020 1 2:00:00 AM EST tablet 30 TAKE ONE TABLET BY MOUTH EVERY D AY TAKE ONE TABLET BY MOUTH EVERY DAY SOLD: 10/09/2020 [facility] Metformin hydrochloride 850 MG Oral Tablet METFORMIN HCL 05/13/2020 12:00:00 AM EST tablet 60 TAKE ONE TABLET BY MOUTH TWI CE A DAY TAKE ONE TABLET BY MOUTH TWICE A DAY SOLD: 08/04/2020 [facility] atorvastatin 20 MG Oral Tablet ATORVASTATIN CALCIUM 05/13/2020 1 2:00:00 AM EST tablet 30 TAKE ONE TABLET BY MOUTH EVERY D AY TAKE ONE TABLET BY MOUTH EVERY DAY SOLD: 05/14/2020 [facility] Metformin hydrochloride 850 MG Oral Tablet METFORMIN HCL 05/13/2020 12:00:00 AM EST tablet 60 TAKE ONE TABLET BY MOUTH TWI CE A DAY TAKE ONE TABLET BY MOUTH TWICE A DAY SOLD: 05/14/2020 [facility] 20 mg 12/21/2019 12:00:00 AM EDT capsule,delayed release (DR/EC) 60 TAKE ONE CAPSULE BY MOUTH TWICE A DAY TAKE ONE CAPSULE BY MOUTH TWICE A DAY SOLD: 02/02/2020 [facility] 20 mg 12/21/2019 12:00:00 AM EDT capsule,delayed release (DR/EC) 60 TAKE ONE CAPSULE BY MOUTH TWICE A DAY TAKE ONE CAPSULE BY MOUTH TWICE A DAY SOLD: 01/03/2020 [facility] 20 mg 12/21/2019 12:00:00 AM EDT capsule,delayed release (DR/EC) 60 TAKE ONE CAPSULE BY MOUTH TWICE A DAY TAKE ONE CAPSULE BY MOUTH TWICE A DAY SOLD: 06/13/2020 [facility] 20 mg 12/21/2019 12:00:00 AM EDT capsule,delayed release (DR/EC) 60 TAKE ONE CAPSULE BY MOUTH TWICE A DAY TAKE ONE CAPSULE BY MOUTH TWICE A DAY SOLD: 03/06/2020 [facility] 20 mg 12/21/2019 12:00:00 AM EDT capsule,delayed release (DR/EC) 60 TAKE ONE CAPSULE BY MOUTH TWICE A DAY TAKE ONE CAPSULE BY MOUTH TWICE A DAY SOLD: 05/14/2020 [facility] 20 mg 12/21/2019 12:00:00 AM EDT capsule,delayed release (DR/EC) 60 TAKE ONE CAPSULE BY MOUTH TWICE A DAY TAKE ONE CAPSULE BY MOUTH TWICE A DAY SOLD: 04/17/2020 [facility] Metformin hydrochloride 850 MG Oral Tablet METFORMIN HCL 11/19/2019 12:00:00 AM EDT tablet 180 TAKE ONE TABLET BY MOUTH TWI CE A DAY TAKE ONE TABLET BY MOUTH TWICE A DAY SOLD: 03/06/2020 [facility] atorvastatin 40 MG Oral Tablet ATORVASTATIN CALCIUM 10/18/2019 1 2:00:00 AM EDT tablet 30 TAKE ONE TABLET BY MOUTH EVERY D AY TAKE ONE TABLET BY MOUTH EVERY DAY SOLD: 04/17/2020 [facility] atorvastatin 40 MG Oral Tablet ATORVASTATIN CALCIUM 10/18/2019 1 2:00:00 AM EDT tablet 30 TAKE ONE TABLET BY MOUTH EVERY D AY TAKE ONE TABLET BY MOUTH EVERY DAY SOLD: 02/02/2020 [facility] atorvastatin 40 MG Oral Tablet ATORVASTATIN CALCIUM 10/18/2019 1 2:00:00 AM EDT tablet 30 TAKE ONE TABLET BY MOUTH EVERY D AY TAKE ONE TABLET BY MOUTH EVERY DAY SOLD: 03/06/2020 [facility] 40 mg 10/18/2019 12:00:00 AM EDT tablet 30 TAKE ONE TABLET BY MOUTH EVERY DAY TAKE ONE TABLET BY MOUTH EVERY DAY SOLD: 01/03/2020 [facility] 200 mg 08/06/2019 12:00:00 AM EDT capsule 30 TAKE ONE CAPSULE BY MOUTH EVERY DAY TAKE ONE CAPSULE BY MOUTH EVERY DAY SOLD: 02/02/2020 [facility] 200 mg 08/06/2019 12:00:00 AM EDT capsule 30 TAKE ONE CAPSULE BY MOUTH EVERY DAY TAKE ONE CAPSULE BY MOUTH EVERY DAY SOLD: 01/03/2020 [facility] montelukast 10 MG Oral Tablet MONTELUKAST SODIUM 08/04/2019 12:0 0:00 AM EDT tablet 30 TAKE ONE TABLET BY MOUTH EVERY D AY TAKE ONE TABLET BY MOUTH EVERY DAY SOLD: 01/03/2020 [facility] Insurance Providers Payer name Policy type / Coverage type Policy ID Covered constitution party ID Covered constitution party's relationship to cowan Policy [place] Plan Information WORKER'S COMP [id number] Emp [id number] WORKER'S COMP [id number] Emp [id number] ZULEMA HAIR W [id number] Empl [id number] ZULEMA HAIR W [id number] Empl [id number] WORKERS COMPENSATION GENERIC W [id number] Empl [id number] [facility] MEDICAID [id number] Lisa [id number] EVELINA [id number] SP [id number] - SELF PAY EVELINA [id number] SP [id number] SELF PAY EVLEINA [id number] SP [id number] SELF PAY SELF PAY EVELINA [id number] SP [id number] [place] Medicaid F [id number] SELF 7 [id number] EVELINA [id number] SP [id number] AETNA MEDICARE ADV [id number] SP M [id number] SELF PAY MEDICAID [facility] [id number] SP AD [id number] MEDICARE [id number] SP [id number] SELF PAY EVELINA [id number] SP [id number] - Medicare C [id number] SELF [id number] SELF PAY MEDICAID [facility] [id number] SP AD [id number] SELF PAY EVELINA [id number] SP [id number] - MEDICARE [id number] SP [id number] EVELINA [id number] SP [id number] - MEDICAID [facility] [id number] SP AD [id number] SELF PAY AETNA MEDICARE ADV [id number] SP M [id number] SELF PAY MEDICARE [id number] SP [id number] AETNA MEDICARE ADV [id number] SP M [id number] MEDICAID [facility] [id number] SP AD [id number] MEDICAID [facility] [id number] SP AD [id number] MEDICARE [id number] SP [id number] SELF PAY [place] [id number] SP AD [id number] SELF PAY MEDICARE [id number] SP [id number] MEDICARE [id number] SP [id number] [place] [id number] SP AD [id number] SELF PAY MEDICARE [id number] SP [id number] SELF PAY MEDICAID [facility] [id number] SP AD [id number] MEDICARE [id number] SP [id number] SELF PAY MEDICAID [facility] [id number] SP AD [id number] SELF PAY MEDICAID [facility] [id number] SP AD [id number] MEDICARE [id number] SP [id number] MEDICARE [id number] SP [id number] X63 MEDICAID [facility] [id number] SP AD [id number] SELF PAY [facility] [id number] [facility] [id number] [facility] [id number] [facility] Plan - Medicaid Medicaid [id number] Self [facility] Plan-Caid Medicaid [id number] Self WORKER'S COMP [id number] In [id number] [facility] [id number] [facility] [id number] SP [id number] SELF PAY UNAVAILABLE [facility] [id number] SP [id number] [facility] UNAVAILABLE 18 U NAVAILABLE SELF PAY 2 UNAVAILABLE 1 UNAVAILA BLE CHROME TANNER 12 UNAVAILABLE 1 UNAV AILABLE SELF PAY [id number] [facility] 3 [id number] W [place] Medicaid F [id number] SELF 7 [id number] Medicaid [facility] Healthcare S D [id number] SELF [id number] WELLCARE [id number] SP [id number] [place] Care [id number] Commercial Insurance [id number] ID IDENTIFICATION [id number] Other Insurance ..[id number] Medicaid [facility] Other 0 [id number] Self 0 Problems, Conditions, and Diagnoses Code Display Name Description Problem Type Effective Dates Data Source(s) M19.90 [id number] Arthritis Problem 12/08/2020 12:00:00 AM ED T eCW1 ([facility]) E78.1 [id number] Hypertriglyceridemia Problem 12/08/2020 12:0 0:00 AM EDT eCW1 ([facility]) K22.70 [id number] 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 11/10/2020 12:00:00 AM EDT eCW1 ([facility]) F17.210 [id number] Cigarette nicotine dependence without com plication Problem 06/20/2020 12:00:00 AM EST eCW1 ([facility]) E11.9 [id number] Type 2 diabetes star itus without complication, without long-term current use of insulin Problem 06/02/2020 12:00:00 AM EST eCW1 ([facility]) E78.2 [id number] Mixed hyperlipidemia Problem 06/02/2020 12:0 0:00 AM EST eCW1 ([facility]) K21.9 [id number] Gastroesophageal reflux disease without e sophagitis Problem 05/12/2020 12:00:00 AM EST eCW1 ([facility]) J30.89 [id number] Non-seasonal allergic rhinitis, unspecifi ed trigger Problem 05/12/2020 12:00:00 AM EST eCW1 ([facility]) G89.29 Chronic pain Other chronic pain Problem 05/12/2020 12:0 0:00 AM EST eCW1 ([facility]) M54.41 Sciatica Lumbago with sciatica, right side Problem 05/12/2020 12:00:00 AM EST eCW1 ([facility]) E78.00 [id number] Pure hypercholesterolemia Problem 05/12/2020 12:00:00 AM EST eCW1 ([facility]) Surgeries/Procedures Procedure Description Date Indications Data Source(s) LARYNGOSCOPY FLEXIBLE FIBEROPTIC DIAGNOSTIC 12/12/2020 12:00:00 AM EDT [facility] ([facility]) OFFICE OUTPATIENT VISIT 25 MINUTES 12/12/2020 12:00:00 [facility] LARYNGOSCOPY FLEXIBLE FIBEROPTIC DIAGNOSTIC 10/04/2020 12:00:00 AM EDT [facility] OFFICE OUTPATIENT VISIT 25 MINUTES 10/04/2020 12:00:00 AM EDT [facility] Endoscopy Upper GI Biopsy 09/29/2020 12:00:00 AM EDT [facility] OFFICE OUTPATIENT VISIT 15 MINUTES 09/21/2020 12:00:00 AM EDT [facility] Endoscopy Nasal/Sinus Surgical W/BX/Polypectomy/Debridement 09/14/2020 12:00:00 AM EDT [facility] Laryngoscopy Direct Biopsy W/Operating Microscope 09/14/2020 [facility] OUTPATIENT NEW 30 MINUTES 07/28/2020 12:00:00 A M ED [facility] Endoscopy Nasal Diagnostic 07/18/2020 12:00:00 AM ED [facility] OFFICE OUTPATIENT NEW 45 MINUTES 07/18/2020 12:00:00 A [facility] Immunization: Flublok Quadrivalent (18 years & older) 0.5mL IM (Influenza) 05/12/2020 12:00:00 AM EST eCW1 ([facility]) Results ID Date Data Source [id number] 02/10/2021 09:45:00 AM EDT [facility] Name Value Range Interpretation Code Description Data Trisha rce(s) Supporting Document(s) SARS-CoV-2 (COVID-19) RNA [Presence] in Respiratory specimen by TING with probe detection Not Detected [facility] This lab was ordered by [facility] and reported by [employer] ID Date Data Source ADOLPH TITER & PATTERN 12/08/2020 12:00:00 AM EDT eCW1 ([facility]) Name Value Range Interpretation Code Description Data Trisha rce(s) Supporting Document(s) Negative . ADOLPH (HEP2) eCW1 ([facility]) ID Date Data Source HLA-B27 12/08/2020 12:00:00 AM EDT eCW1 ([facility]) Name Value Range Interpretation Code Description Data Trisha rce(s) Supporting Document(s) Negative . HLA-B27 eCW1 ([facility]) ID Date Data Source SMC SPINE LS COMPLETE 12/08/2020 12:00:00 AM EDT eCW1 [facility] Name Value Range Interpretation Code Description Data Trisha rce(s) Supporting Document(s) SMC SPINE LS COMPLETE eCW1 ([facility]) ID Date Data Source RHEUMATOID FACTOR QUANT 12/08/2020 12:00:00 AM EDT eCW1 ([facility]) Name Value Range Interpretation Code Description Data Trisha rce(s) Supporting Document(s) < 10.0 <15.0 RHEUMATOID FACTOR QUANT eCW1 ( [facility]) ID Date Data Source FREE T4 & TSH PANEL 12/08/2020 12:00:00 AM EDT eCW1 ([facility]) Name Value Range Interpretation Code Description Data Trisha rce(s) Supporting Document(s) 1.09 0.76-1.46 FREE T4 eCW1 ([facility]) 0.919 0.358-3.740 THYROID STIMULATING HORM ONE eCW1 ([facility]) ID Date Data Source C REACTIVE PROTEIN QUANTITATIV (At [facility]) 12/08/2020 12:00 :00 AM EDT eCW1 ([facility]) Name Value Range Interpretation Code Description Data Trisha rce(s) Supporting Document(s) 0.69 0.00-0.30 C REACTIVE PROTEIN QUANTI TATIV eCW1 ([facility]) ID Date Data Source [id number] 09/29/2020 10:58:00 AM EDT [facility] ([facility] ) Name Value Range Interpretation Code Description Data Trisha rce(s) Supporting Document(s) Surgical pathology study Laboratory test [facility] FINAL DIAGNOSIS Esophagus, GE junction, biopsy: Roman's [...] 09/29/2020 - 1506 Signed SANFORD VICK MD 10/02/2020 1032 ID Date Data Source [id number] 09/24/2020 09:40:[address] [facility] Name Value Range Interpretation Code Description Data Trisha rce(s) Supporting Document(s) SARS-CoV-2 (COVID-19) RNA [Presence] in Respiratory specimen by TING with probe detection Not Detected [facility] This lab was ordered by [facility] and reported by [employer]. ID Date Data Source [id number] 09/14/2020 10:32:00 AM EDT [facility] ([facility], ) Name Value Range Interpretation Code Description Data Trisha rce(s) Supporting Document(s) Surgical pathology study Laboratory test result [facility] ([facility], ) FINAL DIAGNOSIS A - Nasopharynx, left, biopsy: [...] aggregate. All in one. -SVY 09/14/2020 - 1432 Signed ENEDELIA HENRY MD 09/15/2020 1326 ID Date Data Source [id number] 09/14/2020 08:12:00 AM EDT [facility] ([facility], ) Name Value Range Interpretation Code Description Data Trisha rce(s) Supporting Document(s) Glucose [Mass/volume] in Capillary blood by Glucometer 153 mg/dL 70-105 Above high normal [facility] ([facility]) ID Date Data Source [id number] 09/09/2020 11:20:00 AM EDT [facility] Name Value Range Interpretation Code Description Data Trisha rce(s) Supporting Document(s) SARS-CoV-2 (COVID-19) RNA [Presence] in Respiratory specimen by TING with probe detection Not Detected [facility] This lab was ordered by [facility] and reported by [employer] ID Date Data Source ADM CHEST 2 VIEW 06/20/2020 12:00:00 AM EST eCW1 ([facility]) Name Value Range Interpretation Code Description Data Trisha rce(s) Supporting Document(s) ADM CHEST 2 VIEW eCW1 ([facility]) ID Date Data Source [id number] 06/02/2020 11:01:00 AM EST [facility] Name Value Range Interpretation Code Description Data Trisha rce(s) Supporting Document(s) SARS coronavirus 2 RNA Not Detected [facility] lab was ordered by [facility] and reported by [employer]. ID Date Data Source [id number] 06/02/2020 10:27:00 AM EST [facility] Name Value Range Interpretation Code Description Data Trisha rce(s) Supporting Document(s) SARS COVID ANTIGEN NEGATIVE [facility] This lab was ordered by [facility] nd reported by [facility]. ID Date Data Source [id number] 05/16/2020 03:44:43 PM EST [facility] [facility] Name Value Range Interpretation Code Description Data Trisha rce(s) Supporting Document(s) HEMOGLOBIN A1C @ 7.3 % (4.0-6.0) H [facility] [facility] Performed using Siemens Kinta immunoassa y.Care must be taken when interpreting [id number] in patients with a hemoglobin variantor decreased erythrocyte lifespan. Values 5.7 - 6.4% suggest prediabetes.Values >=6.5% are diagnostic for diabetes.REFERENCE: DIABETES CARE 2018: 41(S13-S27). EST AVERAGE GLUCOSE 163 mg/dL [facility] [facility] ID Date Data Source [id number] 05/16/2020 04:49:53 PM EST [facility] Name Value Range Interpretation Code Description Data Trisha rce(s) Supporting Document(s) ALBUMIN, URINE 2.36 mg/dL [facility] [facility] CREATININE,URINE 178.00 mg/dL [facility] [place] [facility] ALB/CREATININE RATIO 13.3 ug/mg (0.0-29.9) [facility] [place] [facility] ID Date Data Source [id number] 05/16/2020 03:26:40 PM EST [facility] [facility] Name Value Range Interpretation Code Description Data Trisha rce(s) Supporting Document(s) WBC 11.7 10*3/uL (4.1-11.0) H [facility] [facility] RBC 4.77 10*6/uL (4.60-6.10) [facility] [facility] HGB 14.4 g/dL (13.5-18.0) [facility] [facility] HCT 42.2 % (41.0-53.0) [facility] [facility] MCV 88.6 fL (80.0-95.0) [facility] [facility] MCH 30.3 pg (27.0-32.0) [facility] [place] [facility] MCHC 34.2 g/dL (32.0-36.0) [facility] [place] [facility] RDW 13.7 % (10.5-14.5) [facility] [place] [facility] PLT 166 10*3/uL (150-450) [facility] MPV 8.9 fL (7.1-10.7) [facility] [place] [facility] NEUT % 70.1 % (35.0-75.0) [facility] [place] [facility] LYMPH % 21.6 % (16.0-52.0) [facility] [place] [facility] MONO % 5.9 % (0.0-8.0) [facility] [place] [facility] EOS % 1.7 % (0.0-5.0) [facility] [place] - [facility] BASO % 0.7 % (0.0-4.0) [facility] - CORE NEUT # 8.2 10*3/uL (1.8-7.7) H Laboratory [facility] of [place] - CORE LYMPH # 2.5 10*3/uL (1.2-4.8) [facility] [place] - [place] MONO # 0.7 10*3/uL (0.0-0.8) [facility] - CORE Eosinophils [#/volume] in Blood by Automated count 0.2 10*3/uL (0.0-0 .5) [facility] - CORE BASO # 0.1 10*3/uL (0.0-0.2) [facility] [place] [facility] [place] ID Date Data Source [id number] 05/16/2020 04:02:59 PM EST [facility] Name Value Range Interpretation Code Description Data Trisha rce(s) Supporting Document(s) 25 HYDROXY VIT D @ 8 ng/mL (31-100) L [facility] A REVIEW OF THE LITERATURE SUGGESTS THEF OLLOWING RANGES FOR THE CLASSIFICATIONOF 25-OH VITAMIN D STATUS: VITAMIN D STATUS 25-OH VITAMIN D DEFICIENCY <20 NG/MLINSUFFICIENCY 20-30 NG/MLSUFFICIENCY 31 - 100 NG/MLTOXICITY > 100 NG/ML A PEDIATRIC REFERENCE RANGE HAS NOT BEENESTABLISHED USING THIS METHOD. ID Date Data Source [id number] 05/16/2020 04:03:50 PM EST [facility] [place] [facility] Name Value Range Interpretation Code Description Data Trisha rce(s) Supporting Document(s) VITAMIN B12 @ 484 pg/mL (193-986) [facility] [facility] ID Date Data Source [id number] 05/16/2020 04:03:50 PM EST [facility] [place] [facility] Name Value Range Interpretation Code Description Data Trisha rce(s) Supporting Document(s) SODIUM 142 mmol/L (136-145) [facility] [facility] POTASSIUM 4.7 mmol/L (3.6-5.2) [facility] [facility] CHLORIDE 106 mmol/L (100-108) [facility] [facility] CO2 29 mmol/L (22-31) [facility] [facility] ANION GAP 7 mmol/L (7-16) [facility] [place] [facility] UREA NITROGEN 15 mg/dL (7-24) [facility] [place] [facility] CREATININE 0.72 mg/dL (0.80-1.30) L [facility] [place] [facility] BUN/CREAT RATIO 20.8 RATIO (10.0-20.0) H [facility] [place] [facility] GLUCOSE 159 mg/dL (70-99) H [facility] [place] [facility] FASTING CALCIUM 9.0 mg/dL (8.4-10.2) [facility] - [facility] TOTAL PROTEIN 6.6 g/dL (6.4-8.2) [facility] [place] [facility] ALBUMIN 3.6 g/dL (3.5-4.6) [facility] [place] [facility] GLOBULIN 3.0 g/dL (2.7-4.3) [facility] [place] [facility] ALB/GLOB RATIO 1.2 RATIO Laboratory [facility] [facility] [place] - CORE ALKALINE PHOSPHATASE 74 U/L (45-117) Laborator [facility] - CORE BILIRUBIN,TOTAL 0.4 mg/dL (0.0-1.0) Laboratory [facility] [place] - CORE PLEASE NOTE:Total bilirubin results may be falselyelevated in patients taking [employer]. AST (SGOT) 12 U/L (11-39) Laboratory [place] [facility] [place] (SGPT) 27 U/L (12-78) Laboratory [place] [facility] [place] GFR >60 ml/min/1.73m2 (>59) Laboratory [facility] [place] GFR ( AMER) >60 ml/min/1.73m2 (>59) Laboratory [facility] [employer] GFR INTERPRETATION Laboratory [facility] [employer] [facility] [place] FUNCTION OR MILD DISEASE - GFR >OR= 60CHRONIC KIDNEY DISEASE - GFR 15 - 59RENAL FAILURE - GFR <15 Est. GFR calculation based on the MDRDstudy equation, which assumes a steadystate for creatinine. Est. GFR should notbe used for medication dosing. ID Date Data Source [id number] 05/16/2020 04:03:50 PM EST [facility] [place] Name Value Range Interpretation Code Description Data Trisha rce(s) Supporting Document(s) FOLATE @ 15.8 ng/mL (3.1-17.5) [facility] [place] ID Date Data Source [id number] 05/16/2020 04:03:50 PM EST [facility] [place] Name Value Range Interpretation Code Description Data Trisha rce(s) Supporting Document(s) CHOLESTEROL @ 161 mg/dL (0-200) [facility] [place] TRIGLYCERIDE @ 393 mg/dL (30-200) H [facility] [place] FASTING HDL CHOLESTEROL @ 35 mg/dL (>40) L [facility] [place] PER NCEP ATP III GUIDELINES:RESULTS LOWE R THAN 40 MG/DL ARE SUGGESTIVEOF INCREASED RISK FOR CORONARY ARTERYDISEASE. RESULTS > OR = TO 60 MG/DL ARECONSIDERED A NEGATIVE RISK FACTOR. CHOL/HDL RATIO 4.6 RATIO [facility] - CORE INTERPRETATION OF CHOL-HDL RATIO CHD RISK FEMALE MALEVERY HIGH >8.3 >14.3HIGH 5.6- 8.3 6.7- 14.3AVERAGE 3.7- 5.6 4.0- 6.7BELOW AVERAGE 2.5- 3.7 2.7- 4.0PROTECTED <2.5 <2.7 LDL CHOL (CALC) (<130) [facility] - CORE INTERFERENCE FROM ELEVATED TRIGLYCERIDES (GREATER THAN 300 MG/DL). SEE RESULTFOR DIRECT LDL. ID Date Data Source [id number] 05/16/2020 04:03:50 PM EST [facility] Name Value Range Interpretation Code Description Data Trisha rce(s) Supporting Document(s) FREE THYROXINE @ 1.03 ng/dL (0.76-1.46) [facility] Date Data Source [id number] 05/16/2020 04:03:50 PM EST [facility] Name Value Range Interpretation Code Description Data Trisha rce(s) Supporting Document(s) TSH,ULTRASENSITIVE @ 1.080 mIU/L (0.360-4.170) [facility] ID Date Data Source [id number] 05/16/2020 04:39:29 PM EST [facility] Name Value Range Interpretation Code Description Data Trisha rce(s) Supporting Document(s) DIRECT LDL @ 76 mg/dL (<130) [facility] [place] - CORE PER NCEP ATP III GUIDELINES: OPTIMAL < 100 NEAR OPTIMAL 100 - 129BORDERLINE HIGH 130 - 159 HIGH 160 - 189 VERY HIGH > 189 Procedure Social History Code Duration Value Status Description Data Source(s ) Smoking 12/08/2020 12:00:00 AM EDT Current Smoker completed Curre nt Smoker eCW1 ([facility]) Smoking 12/08/2020 12:00:00 AM EDT Current Smoker completed Curre nt Smoker eCW1 ([facility]) Smoking 11/11/2020 12:00:00 AM EDT Current Smoker completed Curre nt Smoker eCW1 ([facility]) Smoking 06/20/2020 12:00:00 AM EST Current Smoker completed Curre nt Smoker eCW1 ([facility]) Smoking 06/20/2020 12:00:00 AM EST Current Smoker completed Curre nt Smoker eCW1 ([facility]) Smoking 06/20/2020 12:00:00 AM EST Current Smoker completed Curre nt Smoker eCW1 ([facility]) Smoking 06/20/2020 12:00:00 AM EST Current Smoker completed Curre nt Smoker eCW1 ([facility]) Smoking 06/02/2020 12:00:00 AM EST Current Smoker completed Curre nt Smoker eCW1 ([facility]) Smoking 06/02/2020 12:00:00 AM EST Current Smoker completed Curre nt Smoker eCW1 ([facility]) Smoking 05/24/2020 12:00:00 AM EST Current Smoker completed Curre nt Smoker eCW1 ([facility]) Smoking 05/12/2020 12:00:00 AM EST Current Smoker completed Curre nt Smoker eCW1 ([facility]) Vital Signs ID Date Data Source UNK Name Value Range Interpretation Code Description Data Source(s) Body height 69 [in_i] 69 [in_i] [facility] ([facility]) 5'9" Body weight 212.00 [lb_av] 212.00 [facility]av[facility] Body mass index (BMI) [Ratio] 31.3 kg/m2 31.3 k g/m2 [facility] ([facility]) [place] body weight 160 [lb_av] 160 [lb_av[facility] Body weight 96.163 kg 96.[address] [facility] ([facility]) Body surface area Derived from formula 2.12 m2 2.[address] [facility] ([facility]) Body weight 211 [lb_av] 211 [lb_av] W[facility] ([facility] Body height [in_i] eCW1 ([facility]) Body mass index (BMI) [Ratio] 31.16 kg/m2 31.16 kg/m2 W1 ([facility]) Heart rate 104 /min 104 /min eCW1 ([facility]) Respiratory rate 18 /min 18 /min eCW1 ([facility]) Body temperature 96.8 [degF] 96.8 [degF] eCW1 ( [facility]) Systolic blood pressure 122 mm[Hg] 122 mm[Hg] e CW1 ([facility]) Diastolic blood pressure 74 mm[Hg] 74 mm[Hg] eCW1 ([facility]) Body height 69 [in_i] 69 [in_i] [facility] ([facility], ) 5'9" Body weight 228.00 [lb_av] 228.00 [lb_av] [facility] ([facility]) Body mass index (BMI) [Ratio] 33.7 kg/m2 33.7 k g/m2 [facility] ([facility]) [place] body weight 160 [lb_av] 160 [lb_av] [facility] Body weight 103.421 kg 103.[address] [facility] ([facility]) Body surface area Derived from formula 2.18 m2 2.[address] [facility] ([facility]) Body weight 216.6 [lb_av] 216.6 [lb_av] eCW1 ([facility]) Body height [in_i] eCW1 ([facility]) Body mass index (BMI) [Ratio] 31.98 kg/m2 31.98 kg/m2 eCW1 ([facility]) Heart rate 99 /min 99 /min eCW1 ([facility]) Respiratory rate 18 /min 18 /min eCW1 ([facility]) Body temperature 97.8 [degF] 97.8 [degF] eCW1 ( [facility]) Systolic blood pressure 112 mm[Hg] 112 mm[Hg] e CW1 ([facility]) Diastolic blood pressure 78 mm[Hg] 78 mm[Hg] eCW1 ([facility]) Body height 69 [in_i] 69 [in_i] [facility] ([facility], ) 5'9" Body weight 220.00 [lb_av] 220.00 [lb_av] [facility] T ([facility]) Body height 69 [in_i] 69 [in_i] [facility] ([facility]) 5'9" Body weight 220.00 [lb_av] 220.00 [lb_av] [facility] T ([facility]) Body mass index (BMI) [Ratio] 32.5 kg/m2 32.5 k g/m2 [facility] ([facility]) [place] body weight 160 [lb_av] 160 [lb_av] [facility] T ([facility]) Body weight 99.792 kg 99.[address] [facility] ([facility]) Body surface area Derived from formula 2.15 m2 2.[address] [facility] ([facility]) Body mass index (BMI) [Ratio] 32.5 kg/m2 32.5 k g/m2 [facility] ([facility]) [place] body weight 160 [lb_av] 160 [lb_av] [facility] ([facility]) Body weight 99.792 kg 99.[address] [facility] ([facility]) Body surface area Derived from formula 2.15 m2 2.[address] [facility] ([facility]) [place] body weight 160 [lb_av] 160 [lb_av] [facility] ([facility]) Body weight 99.792 kg 99.[address] [facility] ([facility]) Body surface area Derived from formula 2.15 m2 2.[address] [facility] ([facility]) Body height 69 [in_i] 69 [in_i] [facility] ([facility]) 5'9" Body weight 220.00 [lb_av] 220.00 [lb_av] [facility] T ([facility]) Body mass index (BMI) [Ratio] 32.5 kg/m2 32.5 k g/m2 [facility] ([facility]) [place] body weight 160 [lb_av] 160 [lb_av] [facility] ([facility]) Body weight 99.792 kg 99.792 kg [facility] ([facility]) Body surface area Derived from formula 2.15 m2 2.[address] [facility] ([facility]) Body height 69 [in_i] 69 [in_i] [facility] ([facility]) 5'9" Body weight 220.00 [lb_av] 220.00 [lb_av] [facility] T ([facility]) Body mass index (BMI) [Ratio] 32.5 kg/m2 32.5 k g/m2 [facility] ([facility]) Systolic blood pressure 128 mm[Hg] 128 mm[Hg] [facility] ([facility]) Diastolic blood pressure 82 mm[Hg] 82 mm[Hg] [facility] Body height 69 [in_i] 69 [in_i] [facility] ([facility]) 5'9" Body weight 225.00 [lb_av] 225.00 [lb_av] [facility] ([facility]) Body mass index (BMI) [Ratio] 33.2 kg/m2 33.2 k g/m2 [facility] ([facility]) [place] body weight 160 [lb_av] 160 [lb_av] [facility] ([facility]) Body weight 102.060 kg 102.[address] [facility] ([facility]) Body surface area Derived from formula 2.17 m2 2.17 m2 [facility] ([facility]) Body weight 103.874 kg 103.874 kg [facility] ([facility]) Body height 69 [in_i] 69 [in_i] [facility] ([facility]) 5'9" Body weight 229.00 [lb_av] 229.00 [lb_av] [facility] T ([facility]) Body mass index (BMI) [Ratio] 33.8 kg/m2 33.8 k g/m2 [facility] [place] body weight 160 [lb_av] 160 [lb_av] [facility] T ([facility], ) Body surface area Derived from formula 2.19 m2 2.19 m2 [facility] ([facility], ) Body weight 238 [lb_av] 238 [lb_av] eCW1 ([facility]) Body height [in_i] eCW1 ([facility]) Body mass index (BMI) [Ratio] 35.14 kg/m2 35.14 kg/m2 eCW1 ([facility]) Heart rate 95 /min 95 /min eCW1 ([facility]) Respiratory rate 18 /min 18 /min eCW1 ([facility]) Body temperature 96.2 [degF] 96.2 [degF] eCW1 ( [facility]) Systolic blood pressure 110 mm[Hg] 110 mm[Hg] e CW1 ([facility]) Diastolic blood pressure 70 mm[Hg] 70 mm[Hg] eCW1 ([facility]) Body weight 236.6 [lb_av] 236.6 [lb_av] eCW1 ([facility]) Body height [in_i] eCW1 ([facility]) Body mass index (BMI) [Ratio] 34.94 kg/m2 34.94 kg/m2 eCW1 ([facility]) Heart rate 88 /min 88 /min eCW1 ([facility]) Respiratory rate 18 /min 18 /min eCW1 ([facility]) Body temperature 96.4 [degF] 96.4 [degF] eCW1 ( [facility]) Systolic blood pressure 120 mm[Hg] 120 mm[Hg] e CW1 ([facility]) Diastolic blood pressure 70 mm[Hg] 70 mm[Hg] eCW1 ([facility]) Body weight 229.4 [lb_av] 229.4 [lb_av] eCW1 ([facility]) Body height [in_i] eCW1 ([facility]) Body mass index (BMI) [Ratio] 33.87 kg/m2 33.87 kg/m2 eCW1 ([facility]) Heart rate 87 /min 87 /min eCW1 ([facility]) Respiratory rate 18 /min 18 /min eCW1 ([facility]) Body temperature 99.2 [degF] 99.2 [degF] eCW1 ( [facility]) Systolic blood pressure 124 mm[Hg] 124 mm[Hg] e CW1 ([facility]) Diastolic blood pressure 74 mm[Hg] 74 mm[Hg] eCW1 ([facility]) Patient Treatment Plan of Care Planned Activity Planned Date Details Description Data Source (s) [place]-3 Acid Ethyl Esters (LONG-TERM) 1000 MG Oral Capsule [ Lovaza] 12/08/2020 12:00:00 AM EDT eCW1 ([facility]) empagliflozin 25 MG Oral Tablet [Jardiance] 12/08/2020 12:00:00 AM EDT eCW1 ([facility]) icosapent ethyl 1000 MG Oral Capsule [Vascepa] 12/08/2020 12:00:00 AM EDT eCW1 ([facility]) [place]-3 Acid Ethyl Esters (LONG-TERM) 1000 MG Oral Capsule [ Lovaza] 12/08/2020 12:00:00 AM EDT eCW1 ([facility]) empagliflozin 25 MG Oral Tablet [Jardiance] 12/08/2020 12:00:00 AM EDT eCW1 ([facility]) icosapent ethyl 1000 MG Oral Capsule [Vascepa] 12/08/2020 12:00:00 AM EDT eCW1 ([facility]) atorvastatin 40 MG Oral Tablet 11/10/2020 12:00:00 AM EDT eCW1 ([facility]) atorvastatin 40 MG Oral Tablet 11/10/2020 12:00:00 AM EDT eCW1 ([facility]) empagliflozin 10 MG Oral Tablet [Jardiance] 11/10/2020 12:00:00 AM EDT eCW1 ([facility]) Fish Oil 1000 MG 11/10/2020 12:00:00 AM EDT eCW1 ([facility]) atorvastatin 40 MG Oral Tablet 11/10/2020 12:00:00 AM EDT eCW1 ([facility]) Chantix Continuing Month Manav 1 MG 11/10/2020 12:00:00 AM EDT eCW1 ([facility]) Chantix Starting Month Manav 0.5 MG X 11 & 1 MG X 42 11/10/2020 12 :00:00 AM EDT eCW1 ([facility]) Metformin hydrochloride 1000 MG Oral Tablet 08/03/2020 12:00:00 AM EDT eCW1 ([facility]) Metformin hydrochloride 1000 MG Oral Tablet 08/03/2020 12:00:00 AM EDT eCW1 ([facility]) Metformin hydrochloride 1000 MG Oral Tablet 08/03/2020 12:00:00 AM EDT eCW1 ([facility]) Metformin hydrochloride 1000 MG Oral Tablet 08/03/2020 12:00:00 AM EDT eCW1 ([facility]) Levofloxacin 500 MG Oral Tablet 06/20/2020 12:00:00 AM EST eCW1 ([facility]) Levofloxacin 500 MG Oral Tablet 06/20/2020 12:00:00 AM EST eCW1 ([facility]) Lancets - 06/15/2020 12:00:00 AM EST e CW1 ([facility]) 24 HR Nicotine 0.875 MG/HR Transdermal Patch [Nicoderm C-Q] 06/15/2020 12:00:00 AM EST eCW1 ([facility]) Nicotine 4 MG Oral Lozenge [Nicorette] 06/15/2020 12:00:00 AM EST eCW1 ([facility]) Blood Glucose Monitor System w/Device 06/15/2020 12:00:00 AM EST eCW1 ([facility]) Glucose Meter Test - 06/15/2020 12:00:00 AM EST eCW1 ([facility]) Amoxicillin 875 MG Oral Tablet 06/02/2020 12:00:00 AM EST eCW1 ([facility]) celecoxib 200 MG Oral Capsule 05/17/2020 12:00:00 AM EST eCW1 ([facility]) celecoxib 200 MG Oral Capsule 05/17/2020 12:00:00 AM EST eCW1 ([facility])
[2021-02-15] MEDS ORDERED: METHYLENE BLUE 0.5% (5MG/ML) 10 ML AMP (PROVAYBLUE) As Ordered ONE ×2 (10:13→10:25)
[2021-02-15] MEDS ORDERED: LIDOCAINE W/EPINEPHRINE 1% 20ML VIAL As Ordered ONE (10:13)
[2021-02-15] MEDS ORDERED: OXYMETAZOLINE 0.05% NASAL SPRAY (AFRIN) As Ordered ONE (10:13)
[2021-02-15] MEDS ORDERED: dexameTHASONE 4 MG/ML 1ML VIAL (J1100 PER 1MG) As Ordered ONE (12:59)
[2021-02-15] MEDS ORDERED: ROCURONIUM BROMIDE 50 MG/5 ML VIAL As Ordered ONE (12:59)
[2021-02-15] MEDS ORDERED: fentaNYL 250 MCG/5 ML INJECTION (J3010) As Ordered ONE (12:59)
[2021-02-15] MEDS ORDERED: ONDANSETRON 4MG/2ML VIAL As Ordered ONE (12:59)
[2021-02-15] MEDS ORDERED: LIDOCAINE 2% 100MG/5ML SDV (FOR ANES.) As Ordered ONE (12:59)
[2021-02-15] MEDS ORDERED: propofoL 200 MG/20 ML VIAL As Ordered ONE ×2 (12:59→13:19)
[2021-02-15] MEDS ORDERED: MIDAZOLAM INJ 2MG/2ML VIAL (J2250 PER 1MG) As Ordered ONE (12:59)
[2021-02-15] MEDS ORDERED: SUGAMMADEX SODIUM 500 MG/5 ML VIAL (BRIDION) As Ordered ONE (13:03)
[2021-02-15] MEDS ORDERED: ONDANSETRON 4MG/2ML VIAL IV PRN (14:15)
[2021-02-15] MEDS ORDERED: METOCLOPRAMIDE INJ 10MG/2ML VIAL (J2765 PER 1) IV PRN (14:15)
[2021-02-15] MEDS ORDERED: LR 1,000 ML IV SCH (14:15)
[2021-02-15] MEDS ORDERED: oxyCODONE 5MG TAB PO PRN (14:15)
[2021-02-15] MEDS ORDERED: fentaNYL 100 MCG/2 ML INJECTION (J3010) IV PRN (14:15)
[2021-02-15 15:20] VITALS: BP 132/72
--- NOTE | 2021-03-06 10:46 | RO ---
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 PROCEDURE PERFORMED: Direct suspension microlaryngoscopy with biopsy of the left and the right vocal cord. SURGEON: Edgard Bull MD. JUVENILE [employer]RECTIONS OFFICER: ANESTHESIA: General. 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 Management options included CO2 laser ablation of the vocal cord have been discussed with the patient. Patient understood and consented to the procedure. INTRAOPERATIVE FINDINGS: Ulcerative lesion on the posterior one-third of the right vocal cord. CO2 laser procedure was not performed due to finding of the right vocal cord. Instead the direct suspension microlaryngoscopy with biopsy was performed. OR NARRATION: Patient was identified in preoperative holding and brought to the operating room in stable condition. In the supine position on the operating table, patient received general anesthesia followed by orotracheal intubation with a laser safe endotracheal tube without incident. Patient was prepped and draped in the usual fashion for the procedure in preparation for the CO2 laser procedure. All personnel in the operating room also observed taking the appropriate precautions for laser safety. At this time, the Dedo-Pilling laryngoscope was introduced. The glottis was visualized. An ulcerative lesion was noted over the right posterior one-third of the vocal cord. Due to this unexpected finding, the decision was made to biopsy the lesion as it may represent a malignant transformation. Additional biopsy was also obtained from the left vocal cord was well. Hemostasis achieved using pledgets of Afrin solution in place over the biopsy sites. Complete hemostasis was observed at the end of the case. Sponge and instrument counts were correct. Estimated blood loss was less than 5 mL. General anesthesia was reversed, and the patient was extubated and brought to the recovery room in stable condition.
== END 2021-02-15 15:20 | disposition home or self-care (01) ==
LOC: M SDC 08:39
PROVIDERS: ATTEND Otolaryngology
DX: K13.21 Leukoplakia of oral mucosa, including tongue (principal); E78.5 Hyperlipidemia, unspecified; E11.9 Type 2 diabetes mellitus without complications; K21.9 Gastro-esophageal reflux disease without esophagitis; Z79.84 Long term (current) use of oral hypoglycemic drugs; G43.909 Migraine, unspecified, not intractable, without status migrainosus; F32.9 Major depressive disorder, single episode, unspecified; Z79.899 Other long term (current) drug therapy
CPT/HCPCS: 31536; 88305; 88331; J1100; J2250; J2405; J3010; Q9968

== ENCOUNTER → 2021-03-12 | Outpatient (CLI) | payer MEDICARE ==
[~2021-03-12] MED LIST changes: -LR 1,000 ML IV ONE
--- NOTE | 2021-03-12 19:19 | REPVR ---
PROCEDURE INFORMATION: Exam: CT Maxillofacial Without Contrast, Sinus Exam date and time: 03/12/2021 2:07 PM Age: 41 years old Clinical indication: Sinusitis; Chronic; Additional info: Chronic maxillary sinusitis TECHNIQUE: Imaging protocol: CT Maxillofacial without contrast. Focus on the sinuses. Radiation optimization: All CT scans at this facility use at least one of these dose optimization techniques: automated exposure control; mA and/or kV adjustment per patient size (includes targeted exams where dose is matched to clinical indication); or iterative reconstruction. COMPARISON: CT Neck with contrast 11/13/2020 9:51 AM FINDINGS: Frontal sinuses: Non pneumatized right frontal sinus. Left frontal sinus is clear. Ethmoid air cells: Mild mucosal thickening of the left ethmoid air cells. Sphenoid sinuses: Normal. No air-fluid levels. Maxillary sinuses: Mild mucosal thickening of the left maxillary sinus. Nasal cavity/Septum: Unremarkable. Orbital cavity: Orbits are normal. Globes are unremarkable. Bones/joints: Unremarkable. Soft tissues: Unremarkable. Dental: Multiple round lucencies in the anterior maxillary bones, which could reflect periapical lucencies versus sequela of recent tooth removal/loss. IMPRESSION: 1. Mild mucosal thickening of the left maxillary and ethmoid sinuses. 2. Multiple round lucencies in the anterior maxillary bones, which could reflect periapical lucencies versus sequela of recent tooth removal/loss. Electronically signed by: Lul Landon On 03/12/2021 19:18:45 PM
== END ==
LOC: M PLAIMG 13:19
PROVIDERS: ATTEND Otolaryngology
DX: J32.0 Chronic maxillary sinusitis (principal)

== ENCOUNTER → 2021-05-30 | Outpatient (CLI) | payer MEDICARE ==
[~2021-05-30] MED LIST changes: +OMEP-173 PO; -OMEP-218 PO; -OMEP-221 PO; +OMEP40CA5 PO
== END ==
LOC: M LABSMTC 10:36
PROVIDERS: ATTEND Anesthesiology
DX: Z01.812 Encounter for preprocedural laboratory examination (principal); Z11.52 Encounter for screening for COVID-19; U07.1 COVID-19

== ENCOUNTER → 2021-06-26 | Outpatient (REF) | payer MEDICARE ==
[2021-06-27 13:12] LABS: HEMATOCRIT 45.5 % (42.0-52.0); HEMOGLOBIN 15.6 g/dl (13.5-17.5); MEAN CORPUSCULAR HEMOGLOBIN 30.8 pg (27.0-33.0); MEAN CORPUSCULAR HGB CONC 34.3 g/dl (32.0-36.5); MEAN CORPUSCULAR VOLUME 89.7 fl (80.0-96.0); PLATELET COUNT, AUTOMATED 195 10^3/uL (150-450); RED BLOOD COUNT 5.07 10^6/uL (4.30-6.10); WHITE BLOOD COUNT 9.2 10^3/uL (4.0-10.0)
[2021-06-27 15:16] LABS: BILIRUBIN,TOTAL 0.7 MG/DL (0.2-1.0); BLOOD UREA NITROGEN 17 MG/DL (7-18); CARBON DIOXIDE LEVEL 27 MEQ/L (21-32); CHLORIDE LEVEL 108 MEQ/L (98-107); CHOLESTEROL LEVEL 168 MG/DL (<200); CREATININE FOR GFR 0.91 MG/DL (0.70-1.30); GLOMERULAR FILTRATION RATE > 60.0 (>60); GLUCOSE, FASTING 151 MG/DL (70-100); HDL CHOLESTEROL 30 MG/DL (>40); LDL CHOLESTEROL 71 MG/DL (<100); NON-HDL-C 138 MG/DL; POTASSIUM SERUM 5.3 MEQ/L (3.5-5.1); SODIUM LEVEL 139 MEQ/L (136-145); TRIGLYCERIDES LEVEL 334 MG/DL (<150)
[2021-06-27 15:20] LABS: ALT/SGPT 27 U/L (12-78)
[2021-06-27 19:30] LABS: HEMOGLOBIN A1c 6.7 %
== END ==
LOC: M SFHCADAM 15:40
PROVIDERS: ATTEND Physician Assistant
DX: E78.2 Mixed hyperlipidemia (principal); E11.9 Type 2 diabetes mellitus without complications; F17.210 Nicotine dependence, cigarettes, uncomplicated; K22.70 Barrett's esophagus without dysplasia; E78.1 Pure hyperglyceridemia

== ENCOUNTER → 2022-01-01 | Outpatient (REF) | payer MEDICARE ==
[2022-01-01 18:49] LABS: ALBUMIN 3.9 GM/DL (3.2-5.2); ALT/SGPT 21 U/L (12-78); BILIRUBIN,TOTAL 0.4 MG/DL (0.2-1.0); BLOOD UREA NITROGEN 12 MG/DL (7-18); CALCIUM LEVEL 9.4 MG/DL (8.5-10.1); CARBON DIOXIDE LEVEL 25 MEQ/L (21-32); CHLORIDE LEVEL 108 MEQ/L (98-107); CREATININE FOR GFR 0.67 MG/DL (0.70-1.30); GLOMERULAR FILTRATION RATE > 60.0 (>60); GLUCOSE, FASTING 97 MG/DL (70-100); POTASSIUM SERUM 3.8 MEQ/L (3.5-5.1); SODIUM LEVEL 138 MEQ/L (136-145); TOTAL PROTEIN 7.1 GM/DL (6.4-8.2)
[2022-01-01 19:23] LABS: HEMOGLOBIN A1c 6.6 %
== END ==
LOC: M SFHCADAM 14:55
PROVIDERS: ATTEND Physician Assistant
DX: E11.9 Type 2 diabetes mellitus without complications (principal); E78.00 Pure hypercholesterolemia, unspecified

== ENCOUNTER → 2022-07-02 | Outpatient (REF) | payer MEDICARE ==
[2022-07-02 14:05] LABS: HEMATOCRIT 44.3 % (42.0-52.0); HEMOGLOBIN 15.1 g/dl (13.5-17.5); MEAN CORPUSCULAR HEMOGLOBIN 30.9 pg (27.0-33.0); MEAN CORPUSCULAR HGB CONC 34.1 g/dl (32.0-36.5); MEAN CORPUSCULAR VOLUME 90.8 fl (80.0-96.0); PLATELET COUNT, AUTOMATED 192 10^3/uL (150-450); RED BLOOD COUNT 4.88 10^6/uL (4.30-6.10); WHITE BLOOD COUNT 11.5 10^3/uL (4.0-10.0)
[2022-07-02 14:39] LABS: FREE T4 1.16 NG/DL (0.89-1.76)
[2022-07-02 14:40] LABS: THYROID STIMULATING HORMONE 1.732 uIU/ML (0.55-4.78)
[2022-07-02 14:44] LABS: ALBUMIN 3.9 G/DL (3.2-5.2); ALKALINE PHOSPHATASE 73 U/L (46-116); ALT/SGPT 16 U/L (7.0-40); AST/SGOT 13 U/L (<34); BILIRUBIN,TOTAL 0.4 MG/DL (0.3-1.2); BLOOD UREA NITROGEN 14 MG/DL (9-23); CALCIUM LEVEL 9.1 MG/DL (8.5-10.1); CARBON DIOXIDE LEVEL 26 MMOL/L (20-31); CHLORIDE LEVEL 105 MMOL/L (98-107); GLOMERULAR FILTRATION RATE > 60.0 (>60); GLUCOSE, FASTING 126 MG/DL (60-100); POTASSIUM SERUM 5.1 MMOL/L (3.5-5.1); SODIUM LEVEL 139 MMOL/L (136-145); TOTAL PROTEIN 6.5 G/DL (5.7-8.2)
[2022-07-02 14:47] LABS: FOLATE 18.9 NG/ML (>5.4); VITAMIN B12 LEVEL 633 PG/ML (211-911)
[2022-07-02 14:52] LABS: CREATININE, URINE 96.8 MG/DL; MAU/CREAT RATIO 5.1 MCG/MG (0.0-30.0)
[2022-07-02 14:54] LABS: HEMOGLOBIN A1c 6.6 % (4.0-6.0)
== END ==
LOC: M SFHCADAM 09:41
PROVIDERS: ATTEND Physician Assistant
DX: K22.70 Barrett's esophagus without dysplasia (principal); E11.9 Type 2 diabetes mellitus without complications; F17.210 Nicotine dependence, cigarettes, uncomplicated; E78.00 Pure hypercholesterolemia, unspecified

== ENCOUNTER → 2022-07-15 | Outpatient (CLI) | payer MEDICARE | LOC: M SOG 07:55 | PROVIDERS: ATTEND Orthopaedic Surgery | DX: M54.50 Low back pain, unspecified (principal) ==

== ENCOUNTER → 2023-06-10 | Outpatient (REF) | payer MEDICARE ==
[2023-06-10 18:27] LABS: HEMOGLOBIN A1c 7.3 % (4.0-6.0)
[2023-06-10 18:43] LABS: ALBUMIN 3.9 G/DL (3.2-5.2); ALKALINE PHOSPHATASE 75 U/L (46-116); ALT/SGPT 20 U/L (7.0-40); AST/SGOT 10 U/L (<34); BILIRUBIN,TOTAL 0.4 MG/DL (0.3-1.2); BLOOD UREA NITROGEN 13 MG/DL (9-23); CALCIUM LEVEL 9.2 MG/DL (8.5-10.1); CARBON DIOXIDE LEVEL 27 MMOL/L (20-31); CHLORIDE LEVEL 106 MMOL/L (98-107); CREATININE FOR GFR 0.62 MG/DL (0.70-1.30); GLOMERULAR FILTRATION RATE > 60.0 (>60); GLUCOSE, FASTING 127 MG/DL (60-100); SODIUM LEVEL 140 MMOL/L (136-145); TOTAL PROTEIN 6.9 G/DL (5.7-8.2)
== END ==
LOC: M SFHCADAM 15:06
PROVIDERS: ATTEND Physician Assistant
DX: E11.9 Type 2 diabetes mellitus without complications (principal)

== ENCOUNTER 2024-01-07 09:49 | Emergency (ER) | payer MEDICARE ==
[~2024-01-07] VITALS: Ht 175.3 cm; Wt 109.3 kg
[2024-01-07 09:50] VITALS: BP 180/100; TEMP 97.6; O2SAT 97
[2024-01-07] MEDS ORDERED: ESCITALOPRAM (10:03)
[2024-01-07] MEDS ORDERED: FAMO40TA3 (10:03)
[2024-01-07] MEDS ORDERED: TRAZ-252 (10:03)
[2024-01-07] MEDS ORDERED: DEXL60CA13 (10:03)
[2024-01-07] MEDS ORDERED: MELO15TA28 (10:03)
[2024-01-07] MEDS: ACETAMINOPHEN 325 MG TAB PO ONE (12:22)
[2024-01-07] MEDS: IBUPROFEN 600MG TAB PO ONE (12:23)
== END 2024-01-07 12:25 | disposition home or self-care (01) ==
LOC: M ED 09:49
DX: S40.012A Contusion of left shoulder, initial encounter (principal); Y92.019 Unspecified place in single-family (private) house as the place of occurrence of the external cause; Y93.9 Activity, unspecified; Y99.9 Unspecified external cause status; E11.9 Type 2 diabetes mellitus without complications; K21.9 Gastro-esophageal reflux disease without esophagitis; F41.9 Anxiety disorder, unspecified; Z79.84 Long term (current) use of oral hypoglycemic drugs; Z79.899 Other long term (current) drug therapy

== ENCOUNTER → 2024-04-22 | Outpatient (REF) | payer MEDICARE ==
[~2024-04-22] MED LIST changes: +DEXI60CA2 PO; +DEXL60CA13; +ESCITALOPRAM; +FAMO20TA5 PO; +FAMO40TA3; +JANU100T PO; +LEXA1TAB PO; +MELO15TA28; +MELO15TA28 PO; +SODI88SP; +TRAZ-252; +TRAZ-252 PO
[2024-04-22 18:42] LABS: BASO # 0.1 10^3/uL (0.0-0.2); BASO % 0.7 % (0.0-1.0); EOS # 0.1 10^3/uL (0.0-0.5); EOS % 0.7 % (0.0-3.0); HEMATOCRIT 43.7 % (42.0-52.0); LYMPH # 2.1 10^3/uL (1.5-5.0); LYMPH % 27.8 % (24.0-44.0); MEAN CORPUSCULAR HEMOGLOBIN 32.8 pg (27.0-33.0); MEAN CORPUSCULAR HGB CONC 34.3 g/dl (32.0-36.5); MEAN CORPUSCULAR VOLUME 95.4 fl (80.0-96.0); MONO # 0.5 10^3/uL (0.0-0.8); MONO % 6.6 % (2.0-8.0); NEUTROPHILS # 4.8 10^3/uL (1.5-8.5); NEUTROPHILS % 63.7 % (36.0-66.0); PLATELET COUNT, AUTOMATED 154 10^3/uL (150-450); RED BLOOD COUNT 4.58 10^6/uL (4.30-6.10); WHITE BLOOD COUNT 7.6 10^3/uL (4.0-10.0)
[2024-04-22 18:43] LABS: FREE T4 1.11 NG/DL (0.89-1.76); THYROID STIMULATING HORMONE 0.935 uIU/ML (0.55-4.78)
[2024-04-22 18:44] LABS: FOLATE 17.1 NG/ML (>5.4)
[2024-04-22 18:46] LABS: ALBUMIN 3.8 G/DL (3.2-5.2); ALKALINE PHOSPHATASE 77 U/L (40-129); ALT/SGPT 76 U/L (7.0-40); AST/SGOT 75 U/L (<34); BILIRUBIN,TOTAL 0.4 MG/DL (0.3-1.2); BLOOD UREA NITROGEN 7 MG/DL (9-23); CALCIUM LEVEL 9.7 MG/DL (8.5-10.1); CARBON DIOXIDE LEVEL 21 MMOL/L (20-31); CHLORIDE LEVEL 102 MMOL/L (98-107); CHOLESTEROL LEVEL 192 MG/DL (<200); CHOLESTEROL RISK RATIO 3.78 (<5); CREATININE FOR GFR 0.54 MG/DL (0.70-1.30); GLOMERULAR FILTRATION RATE > 60.0 (>60); GLUCOSE, FASTING 290 MG/DL (60-100); HDL CHOLESTEROL 50.7 MG/DL (>40); LDL CHOLESTEROL 82.3 MG/DL (<100); NON-HDL-C 141.3 MG/DL; POTASSIUM SERUM 4.4 MMOL/L (3.5-5.1); SODIUM LEVEL 136 MMOL/L (136-145); TOTAL PROTEIN 6.8 G/DL (5.7-8.2); TRIGLYCERIDES LEVEL 295 MG/DL (<150); VITAMIN B12 LEVEL 660 PG/ML (211-911)
[2024-04-22 19:10] LABS: HEMOGLOBIN A1c 9.5 % (4.0-6.0)
== END ==
LOC: M SFHCADAM 17:24
PROVIDERS: ATTEND Physician Assistant
DX: E11.9 Type 2 diabetes mellitus without complications (principal); E66.01 Morbid (severe) obesity due to excess calories; Z68.36 Body mass index [BMI] 36.0-36.9, adult; E66.812 Obesity, class 2; F51.01 Primary insomnia; K22.70 Barrett's esophagus without dysplasia; E78.00 Pure hypercholesterolemia, unspecified; F17.210 Nicotine dependence, cigarettes, uncomplicated; F32.1 Major depressive disorder, single episode, moderate; M25.551 Pain in right hip; M25.552 Pain in left hip; Z12.11 Encounter for screening for malignant neoplasm of colon

== ENCOUNTER → 2024-06-15 | Outpatient (REF) | payer MEDICARE ==
[~2024-06-15] MED LIST changes: +SEMA1PEN2 SQ
[2024-06-15 15:03] LABS: ALBUMIN 3.7 G/DL (3.2-5.2); ALKALINE PHOSPHATASE 68 U/L (40-129); ALT/SGPT 49 U/L (7.0-40); AST/SGOT 34 U/L (<34); BILIRUBIN,TOTAL 0.6 MG/DL (0.3-1.2); BLOOD UREA NITROGEN 15 MG/DL (9-23); CALCIUM LEVEL 9.4 MG/DL (8.5-10.1); CARBON DIOXIDE LEVEL 26 MMOL/L (20-31); CHLORIDE LEVEL 100 MMOL/L (98-107); CREATININE FOR GFR 0.63 MG/DL (0.70-1.30); GLOMERULAR FILTRATION RATE > 60.0 (>60); GLUCOSE, FASTING 260 MG/DL (60-100); POTASSIUM SERUM 4.7 MMOL/L (3.5-5.1); SODIUM LEVEL 136 MMOL/L (136-145); TOTAL PROTEIN 6.9 G/DL (5.7-8.2)
[2024-06-15 15:26] LABS: HEMOGLOBIN A1c 9.5 % (4.0-6.0)
== END ==
LOC: M SFHCADAM 07:38
PROVIDERS: ATTEND Physician Assistant
DX: E11.9 Type 2 diabetes mellitus without complications (principal)

== ENCOUNTER → 2024-06-28 | Outpatient (CLI) | payer MEDICARE | LOC: M RAD 06:36 | PROVIDERS: ATTEND Physician Assistant | DX: R74.01 Elevation of levels of liver transaminase levels (principal) ==

== ENCOUNTER → 2024-07-22 | Outpatient (REF) | payer MEDICARE ==
[~2024-07-22] MED LIST changes: +IRBE300T25 PO
[2024-07-22 13:54] LABS: HEMATOCRIT 46.4 % (42.0-52.0); MEAN CORPUSCULAR HEMOGLOBIN 32.5 pg (27.0-33.0); MEAN CORPUSCULAR HGB CONC 34.5 g/dl (32.0-36.5); MEAN CORPUSCULAR VOLUME 94.3 fl (80.0-96.0); PLATELET COUNT, AUTOMATED 157 10^3/uL (150-450); RED BLOOD COUNT 4.92 10^6/uL (4.30-6.10); WHITE BLOOD COUNT 10.1 10^3/uL (4.0-10.0)
[2024-07-22 14:07] LABS: HEMOGLOBIN A1c 8.3 % (4.0-6.0)
[2024-07-22 14:13] LABS: CREATININE, URINE 212.6 MG/DL; MAU/CREAT RATIO 12.2 MCG/MG (0.0-30.0)
[2024-07-22 14:15] LABS: TOTAL 25(OH) VITAMIN D 12.2 NG/ML (20.0-100.0)
[2024-07-22 14:16] LABS: ALBUMIN 3.8 G/DL (3.2-5.2); ALKALINE PHOSPHATASE 66 U/L (40-129); ALT/SGPT 59 U/L (7.0-40); AST/SGOT 45 U/L (<34); BILIRUBIN,TOTAL 0.5 MG/DL (0.3-1.2); BLOOD UREA NITROGEN 9 MG/DL (9-23); CALCIUM LEVEL 9.5 MG/DL (8.5-10.1); CARBON DIOXIDE LEVEL 27 MMOL/L (20-31); CHLORIDE LEVEL 104 MMOL/L (98-107); CHOLESTEROL LEVEL 172 MG/DL (<200); CHOLESTEROL RISK RATIO 4.43 (<5); CREATININE FOR GFR 0.65 MG/DL (0.70-1.30); GLOMERULAR FILTRATION RATE > 60.0 (>60); GLUCOSE, FASTING 173 MG/DL (60-100); HDL CHOLESTEROL 38.8 MG/DL (>40); NON-HDL-C 133.2 MG/DL; POTASSIUM SERUM 4.4 MMOL/L (3.5-5.1); SODIUM LEVEL 140 MMOL/L (136-145); TOTAL PROTEIN 6.9 G/DL (5.7-8.2); TRIGLYCERIDES LEVEL 271 MG/DL (<150); VITAMIN B12 LEVEL 624 PG/ML (211-911)
[2024-07-22 14:18] LABS: FOLATE 17.3 NG/ML (>5.4)
== END ==
LOC: M SFHCADAM 07:51
PROVIDERS: ATTEND Physician Assistant
DX: F32.1 Major depressive disorder, single episode, moderate (principal); F10.10 Alcohol abuse, uncomplicated; F17.210 Nicotine dependence, cigarettes, uncomplicated; E78.00 Pure hypercholesterolemia, unspecified; E78.1 Pure hyperglyceridemia; E11.9 Type 2 diabetes mellitus without complications; Z79.899 Other long term (current) drug therapy

== ENCOUNTER 2024-07-27 09:51 | Day surgery (SDC) | payer MEDICARE ==
[~2024-07-27] VITALS: Ht 175.3 cm; Wt 104.3 kg
[2024-07-27] MEDS: ALBUTEROL SULFATE 2.5MG/0.5ML INH CONCENTRATE NEB SOLN NEB STA (11:09)
[2024-07-27] MEDS ORDERED: fentaNYL 100 MCG/2 ML INJECTION As Ordered ONE (11:43)
[2024-07-27 12:27] VITALS: TEMP 98.3
[2024-07-27] MEDS ORDERED: propofoL 200 MG/20 ML VIAL As Ordered ONE (12:35)
[2024-07-27] MEDS ORDERED: GLYCOPYRROLATE INJ 0.2 MG/ML 2 ML VIAL As Ordered ONE (12:35)
[2024-07-27] MEDS ORDERED: LIDOCAINE 2% 100MG/5ML SDV (FOR ANES.) As Ordered ONE (12:35)
[2024-07-27 12:48] VITALS: BP 130/75; O2SAT 93
[2024-07-27] MEDS ORDERED: SILVER NITRATE APPLICATOR (1 = QTY 10) As Ordered ONE (20:34)
== END 2024-07-27 12:56 | disposition home or self-care (01) ==
LOC: M OPP 09:51
PROVIDERS: ATTEND Internal Medicine Gastroenterology
DX: D12.8 Benign neoplasm of rectum (principal); D12.3 Benign neoplasm of transverse colon; K52.9 Noninfective gastroenteritis and colitis, unspecified; R19.4 Change in bowel habit; K22.70 Barrett's esophagus without dysplasia; Z79.84 Long term (current) use of oral hypoglycemic drugs; Z79.85 Long-term (current) use of injectable non-insulin antidiabetic drugs; Z79.899 Other long term (current) drug therapy; J44.9 Chronic obstructive pulmonary disease, unspecified; F17.210 Nicotine dependence, cigarettes, uncomplicated
CPT/HCPCS: 43239; 45385; 88305; J1596; J3010

== ENCOUNTER → 2025-01-13 | Outpatient (REF) | payer MEDICARE ==
[2025-01-13 13:02] LABS: ALT/SGPT 32 U/L (7.0-40); AST/SGOT 23 U/L (<34); CALCIUM LEVEL 9.4 MG/DL (8.5-10.1); CARBON DIOXIDE LEVEL 27 MMOL/L (20-31); CHLORIDE LEVEL 108 MMOL/L (98-107); CREATININE FOR GFR 0.76 MG/DL (0.70-1.30); GLOMERULAR FILTRATION RATE > 90.0 (>60); POTASSIUM SERUM 5.2 MMOL/L (3.5-5.1); SODIUM LEVEL 137 MMOL/L (136-145)
[2025-01-13 16:35] LABS: ESTIMATED AVERAGE GLUCOSE 137.0 MG/DL (60-110)
== END ==
LOC: M SFHCADAM 08:15
PROVIDERS: ATTEND Physician Assistant
DX: E11.9 Type 2 diabetes mellitus without complications (principal); F17.210 Nicotine dependence, cigarettes, uncomplicated; K63.5 Polyp of colon; Z59.82 Transportation insecurity